=== PATIENT | male | born 1935 | race Caucasian/White ===

== ENCOUNTER 2023-09-27 14:16 | Inpatient (IN) ==
[2023-09-27] MEDS: predniSONE 50 MG TAB PO STA (14:53)
[2023-09-27] MEDS: ALBUT/IPRATROP 3MG/0.5MG NEB 3 ML VIAL NEB STA (14:53)
[2023-09-27 14:58] LABS: iSTAT Creatinine 1.5 mg/dl (0.6-1.3); iSTAT Hemoglobin 15.6 g/dl (14.0-18.0); iSTAT Ionized Calcium 1.17 mmol/l (1.12-1.32); iSTAT Potassium 4.1 mmol/L (3.3-5.0)
[2023-09-27 14:58] LABS: Base Excess VBG 3.2 mEq/L; HCO3 VBG 30 mmol/L; Oxygen Saturation VBG < 60.0 %; PCO2 VBG 53 mmHg (38-50); PO2 VBG 21 mmHg; pH VBG 7.36 (7.36-7.41)
[2023-09-27 15:15] LABS: Basophils # (auto) 0.06 K/uL (0.00-0.20); Basophils % (auto) 0.6 %; Eosinophils # (auto) 0.06 K/uL (0.00-0.50); Eosinophils % (auto) 0.6 %; Hematocrit (blood only) 45.6 % (42.0-52.0); Hemoglobin 15.1 g/dl (14.0-18.0); Immature Granulocytes # (auto) 0.05 K/uL (0.01-0.20); Immature Granulocytes % (auto) 0.5 %; Lymphocytes # (auto) 0.71 K/uL (1.20-3.40); Lymphocytes % (auto) 7.7 %; Mean Corpuscular Hemoglobin 30.3 pg (25.0-34.0); Mean Corpuscular Hgb Conc 33.1 g/dL (32.0-36.0); Mean Corpuscular Volume 91.4 fL (80.0-100.0); Mean Platelet Volume 10.9 fL (9.4-12.4); Monocytes % (auto) 7.6 %; Neutrophils # (auto) 7.69 K/uL (1.40-6.50); Platelet Count 253 K/uL (130-400); RDW Standard Deviation 49.6 fL (36.4-46.3); Red Blood Count 4.99 M/uL (4.70-6.10); White Blood Count 9.27 K/ul (4.8-10.8)
[2023-09-27 15:21] LABS: BUN Creatinine Ratio 23.9 (10-20); Calcium 9.2 mg/dl (8.6-10.3); Est GFR (African American) 55.2 ml/min; Est GFR (Non-African American) 47.6 ml/min; Potassium 4.1 mmol/L (3.5-5.1)
--- NOTE | 2023-09-27 15:21 | XRay Report ---
XR chest 1V portable CLINICAL HISTORY: Chest pain, nonspecific TECHNIQUE: Single frontal radiograph of the chest was obtained. Comparison: Comparison is made to chest radiograph 06/07/2022 FINDINGS: An implanted pacemaker is seen. Cardiomegaly is noted. The aortic arch is calcified. Bilateral lower lung predominant airspace opacities are seen. No evidence of pleural effusion or pneumothorax. IMPRESSION: 1. Bilateral lower lung predominant airspace opacities which may represent atelectasis, pneumonia, a nd/or aspiration. 2. Cardiomegaly is seen. ACT 112: Negative or not required by law. Electronically signed by: Evens Domingo M.D. 09/27/2023 3:20 PM
[2023-09-27 15:28] LABS: Troponin I High Sensitivity 22.1 pg/ml (0-20)
[2023-09-27 15:29] LABS: Partial Thromboplastin Ratio 1.1; Partial Thromboplastin Time 32 Seconds (21-31); Prothrombin Time 11.2 Seconds (9.0-12.0)
[2023-09-27 15:46] LABS: Adenovirus PCR Not Detected (NotDetected); Bordetella parapertussis PCR Not Detected (NotDetected); Bordetella pertussis PCR Not Detected (NotDetected); Chlamydia pneumoniae PCR Not Detected (NotDetected); Coronavirus 229E PCR Not Detected (NotDetected); Coronavirus CoV-2 (COVID19)PCR Not Detected (NotDetected); Coronavirus HKU1 PCR Not Detected (NotDetected); Coronavirus NL63 PCR Not Detected (NotDetected); Coronavirus OC43PCR Not Detected (NotDetected); Human Metapneumovirus PCR Not Detected (NotDetected); Influenza A PCR Not Detected (NotDetected); Influenza B PCR Not Detected (NotDetected); Mycoplasma pneumoniae PCR Not Detected (NotDetected); Parainfluenza Virus 1 PCR Not Detected (NotDetected); Parainfluenza Virus 2 PCR Not Detected (NotDetected); Parainfluenza Virus 3 PCR Not Detected (NotDetected); Parainfluenza Virus 4 PCR Not Detected (NotDetected); Respiratory Syncytial VirusPCR Not Detected (NotDetected); Rhinovirus/Enterovirus PCR Not Detected (NotDetected)
[2023-09-27] MEDS: FUROSEMIDE 40 MG/4 ML VIAL IV ONE (17:11)
--- NOTE | 2023-09-27 17:26 | History & Physical Report ---
Date of Service September 27, 2023 Assessment & Plan (1) Acute hypoxic respiratory failure: Plan: Admit to telemetry Patient presenting from home with reports of worsening shortness of breath. Per patient report, he underwent COURTNEY guided cardioversion yesterday at [facility]. Records unavailable at this time. I attempted to call patient's cardiology office however they were closed. Patient's casino enforcement agent-Dr. Vijay Stinson, [facility]. [phone]. In the ED, patient found to be hypoxic on room air at 84%, currently requiring 5 L of oxygen nasal cannula CXR shows bilateral lower lobe opacities Mildly elevated proBNP Doubt PE given anticoagulation with Eliquis and no missed doses ? CHF from IV fluid administration and/or aspiration from procedure yesterday 05/2022-EF 55% on pharmacologic nuclear stress test S/p Lasix 40 mg IV in the ED. Will hold on additional doses at this time and monitor response. Patient is Lasix john. Consider cardiology consult pending clinical course Will cover empirically for aspiration with IV Unasyn, noted normal procalcitonin and no leukocytosis Received prednisone 50 mg in the ED, will hold on additional steroids at this time. Will continue with scheduled nebs. Wean O2 as able Will need to obtain records from [facility] tomorrow (2) Paroxysmal atrial fibrillation: Plan: Per patient, s/p COURTNEY guided cardioversion yesterday at [facility] -will need to obtain records Per outpatient cardiology note on 08/31/2023, patient was started on amiodarone. Per patient, today is his last day of amiodarone 200mg BID dosing, to start amiodarone 200mg daily tomorrow -- will continue. Continue metoprolol for rate control Continue Eliquis (3) Complete AV block: (4) Pacemaker: Plan: Device interrogation ordered (5) Hypertension: Plan: BP controlled, continue metoprolol and losartan DVT PROPHYLAXIS On Eliquis Patient seen in collaboration with Dr. Moreno. I spent a total of 75 minutes coordinating, documenting, and providing care for this patient excluding time spent in the performance of separately billed services. This included personally reviewing all current laboratories and imaging studies, medication reconciliation, outpatient chart review, and discussion with specialists. History of Present Illness Chief Complaint: Shortness of breath Primary Care Provider: Vineet Paris MD 88-year-old male with PMH paroxysmal atrial fibrillation anticoagulated on Eliquis, complete AV block s/p pacemaker, HTN, GERD, and other problems listed below who presents to the ED for evaluation of shortness of breath. History is obtained from the patient and review of outpatient PCP and cardiology records. According to the patient, he underwent COURTNEY guided cardioversion yesterday at [facility]. Records unavailable at this time. Patient carries a history of paroxysmal atrial fibrillation. On 08/31/2023, patient was seen by his casino enforcement agent and device interrogation showed persistent A-fib for the previous 3 months. Due to complaints of worsening dyspnea on exertion, plans were made to proceed with COURTNEY cardioversion to attempt to maintain sinus rhythm. Patient was also started on amiodarone at that time. Patient reports dyspnea on exertion was at recent baseline prior to procedure yesterday. Patient reports feeling well postprocedure. Today, he woke up feeling his usual state of health however as the day went on, he reports feeling progressively more short of breath. He denies chest pain and palpitations. No lightheadedness, dizziness, diaphoresis, syncopal events. Denies fevers and chills. Reports chronic nonproductive cough which is unchanged from baseline. No abdominal pain, nausea, vomiting, diarrhea. Denies urinary symptoms. In the ED, patient was found to be hypoxic on room air at 84%, initially requiring 5 L of oxygen via nasal cannula. Labs show mildly elevated proBNP. CXR shows bilateral lower lung opacities. Patient was given nebulizer treatment, Lasix 40 mg IV, prednisone 50 mg p.o. Allergies Allergy/AdvReac Type Severity Reaction Status Date / Time lisinopril AdvReac Intermediate Cough Verified 09/27/23 16:07 codeine AdvReac Mild HEADACHES Verified 09/27/23 16:07 Home Medications Medication Instructions Recorded Confirmed Type acetaminophen 500 mg tablet 1,000 mg PO Q6H PRN Pain 04/05/22 09/27/23 History cholecalciferol (vitamin D3) 25 25 mcg PO HS 04/05/22 09/27/23 History mcg (1,000 unit) capsule (Vitamin D3) cyanocobalamin (vitamin B-12) 1,000 mcg PO QAM 04/05/22 09/27/23 History 1,000 mcg capsule finasteride 5 mg tablet 5 mg PO QAM 04/05/22 09/27/23 History folic acid 1 mg tablet 1 mg PO Q2D 04/05/22 09/27/23 History losartan 100 mg tablet 100 mg PO QAM 04/05/22 09/27/23 History metoprolol tartrate 25 mg tablet 12.5 mg PO BID 04/05/22 09/27/23 History pantoprazole 40 mg tablet,delayed 40 mg PO QAM 04/05/22 09/27/23 History release tamsulosin 0.4 mg capsule 0.4 mg PO HS 04/05/22 09/27/23 History amiodarone 200 mg tablet See Rx Instructions .Route .COMPLEX 09/27/23 09/27/23 History apixaban 5 mg tablet (Eliquis) 5 mg PO BID 09/27/23 09/27/23 History Past Med/Surg History Medical History Compression fracture of lumbar vertebra with delayed healing TGA (transient global amnesia) hx-"had it once and never had it again" History of atrial fibrillation f/u anu reyes History of thrombophlebitis left upper extremity in cephalic vein 04/15/21 Hepatic steatosis mild per CT abdomen pelvis 07/11/21 Complete AV block s/p pacemaker Enlarged prostate GERD (gastroesophageal reflux disease) controlled, stable per pt Pacemaker pt is pacer dependent; placed 2013, 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 Required: No Beliefs That Will Affect Care: None Current Living Situation: Spouse current occupational status: other 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 [employer] Feels Safe at Home: Yes Assistive Devices: Walker Physical Exam Constitutional: WD/WN, vitals as above no acute distress Eyes: PERRL, conjunctivae normal, anicteric sclerae ENMT: external ear and nose normal, oropharynx normal Respiratory: normal respiratory effort; no respiratory distress Auscultation: + diminished lung sounds and + wheezes (Faint audible expiratory wheezing noted) Cardiovascular: Rate/Rhythm: regular rate and regular rhythm Vessels: normal peripheral pulses Extremities: + edema (+1 edema RLE, chronic) Gastrointestinal (Abdomen): normal bowel sounds, soft, nontender, no hepatosplenomegaly Musculoskeletal: no cyanosis or clubbing, extremities motor strength 5/5 Skin: no rashes, warm and dry Neurologic: PERRL, EOMI, accommodation nl, no face palsy, no dysarthria Psychiatric: A+Ox3, euthymic affect Results & Data Results & Data Vital Signs (Past 12 Hours) Vital Signs Temp Pulse Pulse Resp BP BP Pulse Ox 09/27/23 17:09 75 29 H 147/91 H 98 09/27/23 16:02 66 23 157/93 H 93 09/27/23 15:15 73 40 H 167/99 H 99 09/27/23 15:02 73 36 H 172/118 H 100 09/27/23 14:45 73 25 H 171/101 H 100 09/27/23 14:36 98 09/27/23 14:31 75 09/27/23 14:21 36.6 C 72 28 H 165/107 H 84 L O2 Del Method O2 Flow Rate 09/27/23 17:09 Nasal Cannula 5 09/27/23 16:02 Nasal Cannula 5 09/27/23 15:15 Nasal Cannula 5 09/27/23 15:02 Nasal Cannula 5 09/27/23 14:45 Nasal Cannula 5 09/27/23 14:36 Nasal Cannula 5 09/27/23 14:31 09/27/23 14:21 Room Air Laboratory Results Short CBC 09/27/23 Range/Units 14:36 WBC 9.27 (4.8-10.8) K/ul Hgb 15.1 (14.0-18.0) g/dl Hct 45.6 (42.0-52.0) % Plt Count 253 (130-400) K/uL BMP 09/27/23 14:36 Sodium 140 Potassium 4.1 Chloride 106 Carbon Dioxide 27 BUN 32 H Creatinine 1.34 Glucose 102 H Calcium 9.2 Diagnostic Findings Chest X-Ray 09/27/23 14:42 XR chest 1V portable CLINICAL HISTORY: Chest pain, nonspecific TECHNIQUE: Single frontal radiograph of the chest was obtained. Comparison: Comparison is made to chest radiograph 06/07/2022 FINDINGS: An implanted pacemaker is seen. Cardiomegaly is noted. The aortic arch is calcified. Bilateral lower lung predominant airspace opacities are seen. No evidence of pleural effusion or pneumothorax. IMPRESSION: 1. Bilateral lower lung predominant airspace opacities which may represent atelectasis, pneumonia, and/or aspiration. 2. Cardiomegaly is seen. ACT 112: Negative or not required by law. Electronically signed by: Evens Domingo M.D. 09/27/2023 3:20 PM Code Status & VTE Plan VTE Prophylaxis Plan VTE Prophylaxis will be ordered: No Supervising Physician Co-Signing Physician Notes Reviewed chart, discussed plan of care with ACTING SECTION CHIEF, cardiology consult called, will continue IV diuretics at this time. Continue present plan of care.
--- NOTE | 2023-09-27 17:38 | Emergency Department Note ---
History of Present Illness General Chief Complaint: Cardiac Assessment Stated Complaint: POSS HEART ATTACK Time Seen by Provider: 09/27/23 14:35 History of Present Illness Provider Complaint: shortness of breath Onset (ago): day(s) (1) Severity: moderate Maximum Pain Intensity: 7 Relieved By: + nothing Exacerbated By: + lying flat Associated symptoms: + chest pain, + orthopnea and + chest congestion; no pain with inspiration, no fever, no cough, no wheezing, no sputum production, no lower extremity pain, no polyuria, no paresthesias, no carpopedal spasm, no hemoptysis or no nausea/vomiting HPI Narrative: Patient on Eliquis. Patient had COURTNEY done yesterday at [facility]. Related Data Home oxygen amount: none Home Medications Medication Instructions Recorded Confirmed Type acetaminophen 500 mg tablet 1,000 mg PO Q6H PRN Pain 04/05/22 09/27/23 History cholecalciferol (vitamin D3) 25 25 mcg PO HS 04/05/22 09/27/23 History mcg (1,000 unit) capsule (Vitamin D3) cyanocobalamin (vitamin B-12) 1,000 mcg PO QAM 04/05/22 09/27/23 History 1,000 mcg capsule finasteride 5 mg tablet 5 mg PO QAM 04/05/22 09/27/23 History folic acid 1 mg tablet 1 mg PO Q2D 04/05/22 09/27/23 History losartan 100 mg tablet 100 mg PO QAM 04/05/22 09/27/23 History metoprolol tartrate 25 mg tablet 12.5 mg PO BID 04/05/22 09/27/23 History pantoprazole 40 mg tablet,delayed 40 mg PO QAM 04/05/22 09/27/23 History release tamsulosin 0.4 mg capsule 0.4 mg PO HS 04/05/22 09/27/23 History amiodarone 200 mg tablet See Rx Instructions .Route .COMPLEX 09/27/23 09/27/23 History apixaban 5 mg tablet (Eliquis) 5 mg PO BID 09/27/23 09/27/23 History Allergies Allergy/AdvReac Type Severity Reaction Status Date / Time lisinopril AdvReac Intermediate Cough Verified 09/27/23 16:07 codeine AdvReac Mild HEADACHES Verified 09/27/23 16:07 Past Med/Surg History Medical History Compression fracture of lumbar vertebra with delayed healing TGA (transient global amnesia) hx-"had it once and never had it again" History of atrial fibrillation f/u anu reyes History of thrombophlebitis left upper extremity in cephalic vein 04/15/21 Hepatic steatosis mild per CT abdomen pelvis 07/11/21 Complete AV block s/p pacemaker Enlarged prostate GERD (gastroesophageal reflux disease) controlled, stable per pt Pacemaker pt is pacer dependent; placed 2013, [facility] pacemaker, anu; f/u anu stinson Hypertension controlled, stable per pt Surgical History Hx of vasectomy Hx of colonoscopy H/O umbilical hernia repair History of cataract surgery R/L History of permanent cardiac pacemaker placement 2013 AND BATTERY REPLACEMENT 2020 Family History Other No known health problems Social History Smoking Status: Never smoker Second Hand Exposure: No; Do You Dip or Chew Tobacco: No; Hx Alcohol Use: No Hx Substance Use: No Preferred Language: Divehi Communication Ability: Effective Roofer Metal Required: No Beliefs That Will Affect Care: None Current Living Situation: Spouse current occupational status: other 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 [employer] Feels Safe at Home: Yes Assistive Devices: Walker Physical Exam 2 Vital Signs: Vital Signs - 24 hr 09/27/23 14:21 09/27/23 14:31 09/27/23 14:36 Temperature 36.6 C Temperature Source Oral Pulse Rate 72 75 Pulse Rate [Left F ngozi] Pulse Rhythm Regular Pulse Rhythm [Left Finger] Pulse Strength Normal Pulse Strength [Le ft Finger] Respiratory Rate 28 H Respiratory Effort / Characteristics Respiratory Depth Respiratory Patter n Blood Pressure 165/107 H Blood Pressure [Le ft Arm] Blood Pressure Darlene n 126 Blood Pressure Darlene n [Left Arm] Blood Pressure Pos ition Sitting Blood Pressure Pos ition [Left Arm] Pulse Oximetry 84 L 98 Oxygen Delivery Me thod Room Air Nasal Cannula Oxygen Flow Rate 5 Sepsis Recent Feve r Within 48 Hours No Sepsis New/Unexpla ined Change in Men nakia Status No Sepsis Action Take n by Nursing No Action Required 09/27/23 14:45 09/27/23 15:02 09/27/23 15:15 Temperature Temperature Source Pulse Rate Pulse Rate [Left F ngozi] 73 73 73 Pulse Rhythm Pulse Rhythm [Left Finger] Pulse Strength Pulse Strength [Le ft Finger] Respiratory Rate 25 H 36 H 40 H Respiratory Effort / Characteristics Respiratory Depth Respiratory Patter n Blood Pressure Blood Pressure [Le ft Arm] 171/101 H 172/118 H 167/99 H Blood Pressure Darlene n Blood Pressure Darlene n [Left Arm] 124 136 121 Blood Pressure Pos ition Blood Pressure Pos ition [Left Arm] Sitting Sitting Sitting Pulse Oximetry 100 100 99 Oxygen Delivery Me thod Nasal Cannula Nasal Cannula Nasal Cannula Oxygen Flow Rate 5 5 5 Sepsis Recent Feve r Within 48 Hours Sepsis New/Unexpla ined Change in Men nakia Status Sepsis Action Take n by Nursing 09/27/23 16:02 09/27/23 17:09 09/27/23 17:15 Temperature Temperature Source Pulse Rate Pulse Rate [Left F ngozi] 66 75 75 Pulse Rhythm Pulse Rhythm [Left Finger] Regular Pulse Strength Pulse Strength [Le ft Finger] Normal Respiratory Rate 23 29 H 29 H Respiratory Effort / Characteristics Non-Labored SOB on Exertion Non-Labored Respiratory Depth Normal Normal Normal Respiratory Patter n Blood Pressure Blood Pressure [Le ft Arm] 157/93 H 147/91 H 147/91 H Blood Pressure Darlene n Blood Pressure Darlene n [Left Arm] 114 109 109 Blood Pressure Pos ition Blood Pressure Pos ition [Left Arm] Lying Pulse Oximetry 93 98 97 Oxygen Delivery Me thod Nasal Cannula Nasal Cannula Nasal Cannula Oxygen Flow Rate 5 5 4 Sepsis Recent Feve r Within 48 Hours Sepsis New/Unexpla ined Change in Men nakia Status Sepsis Action Take n by Nursing 09/27/23 17:15 Temperature Temperature Source Pulse Rate Pulse Rate [Left F ngozi] Pulse Rhythm Pulse Rhythm [Left Finger] Pulse Strength Pulse Strength [Le ft Finger] Respiratory Rate Respiratory Effort / Characteristics Non-Labored Respiratory Depth Normal Respiratory Patter n Regular Blood Pressure Blood Pressure [Le ft Arm] Blood Pressure Darlene n Blood Pressure Darlene n [Left Arm] Blood Pressure Pos ition Blood Pressure Pos ition [Left Arm] Pulse Oximetry Oxygen Delivery Me thod Oxygen Flow Rate Sepsis Recent Feve r Within 48 Hours Sepsis New/Unexpla ined Change in Men nakia Status Sepsis Action Take n by Nursing Physical Exam: Physical Exam GENERAL: oriented to person, place, and time. appears well-developed and well- nourished. HENT: Exam performed. - Head: Normocephalic and atraumatic. EYES: Conjunctivae and EOM are normal. Right eye exhibits no discharge. Left eye exhibits no discharge. No scleral icterus. NECK: Normal range of motion. Neck supple. No JVD present. CV: Normal rate, regular rhythm, normal heart sounds and intact distal pulses. There is no peripheral edema. Palpable radial pulses bue. PULM/CHEST: Expiratory wheezes bilaterally. Inspiratory rales bilaterally. ABD: The abdomen is soft. There is no tenderness. NEURO: Motor and sensation grossly intact. SKIN: Skin is warm and dry. He is not diaphoretic. PSYCH: normal mood and affect. Behavior is normal. Judgment and thought content normal. Course Course 1435: The patient was evaluated in room C1. A complete history and physical exam was performed Cardiac monitoring: An order was placed for continuous cardiac monitoring. The monitor shows a rate of 80 with paced rhythm interpreted by me Patient hypoxic on room air supplemental oxygen via nasal cannula was applied which improved the patient's oxygen saturation. Given the patient's wheezing DuoNeb and prednisone ordered for the patient 1507: Received a patient from the patient's pacemaker risk control field representative Nicholas who did interpretations that the pacemaker seems to be acting appropriately. 1555: Vital signs stable on supplemental oxygen via nasal cannula. BNP 236 high-sensitivity troponin 22.1. Chest x-ray viewed by me shows cardiomegaly with cephalization. Patient will be treated with Lasix 40 mg IV push and admitted to the [facility] hospitalist team. Administered Medications Discontinued Medications Albuterol (Albut/Ipratrop 3mg/0.5mg Neb 3 Ml Vial) 3 ml NEB NOW STA; Protocol Stop: 09/27/23 14:42 Last Admin: 09/27/23 14:53 Dose: 3 ml Documented By: CRISTY Furosemide (Furosemide 40 Mg/4 Ml Vial) 40 mg IV ONE ONE Stop: 09/27/23 15:56 Last Admin: 09/27/23 17:11 Dose: 40 mg Documented By: NILAM Prednisone (Prednisone 50 Mg Tab) 50 mg PO NOW STA Stop: 09/27/23 14:42 Last Admin: 09/27/23 14:53 Dose: 50 mg Documented By: CRISTY Medical Decision Making Laboratory Data Attestation: I reviewed the patient's lab results. 09/27/23 14:36 09/27/23 14:36 Lab Results 09/27/23 09/27/23 09/27/23 Range/Units 14:35 14:36 14:46 WBC 9.27 (4.8-10.8) K/ul RBC 4.99 (4.70-6.10) M/uL Hgb 15.1 (14.0-18.0) g/dl POC Hgb 15.6 (14.0-18.0) g/dl Hct 45.6 (42.0-52.0) % POC Hct 46 (42-52) % MCV 91.4 (80.0-100.0) fL MCH 30.3 (25.0-34.0) pg MCHC 33.1 (32.0-36.0) g/dL RDW Std Deviation 49.6 H (36.4-46.3) fL RDW Coeff of Selena 15.0 H (11.5-14.5) % Plt Count 253 (130-400) K/uL MPV 10.9 (9.4-12.4) fL Immature Gran % (Auto) 0.5 % Neut % (Auto) 83.0 % Lymph % (Auto) 7.7 % [place] % (Auto) 7.6 % Eos % (Auto) 0.6 % Baso % (Auto) 0.6 % Neut # (Auto) 7.69 H (1.40-6.50) K/uL Lymph # (Auto) 0.71 L (1.20-3.40) K/uL [place] # (Auto) 0.70 H (0.11-0.59) K/uL Eos # (Auto) 0.06 (0.00-0.50) K/uL Baso # (Auto) 0.06 (0.00-0.20) K/uL Immature Gran # (Auto) 0.05 (0.01-0.20) K/uL PT 11.2 (9.0-12.0) Seconds INR 1.0 (0.9-1.1) APTT 32 H (21-31) Seconds PTT Ratio 1.1 VBG pH 7.36 (7.36-7.41) VBG pCO2 53 H (38-50) mmHg VBG pO2 21 mmHg VBG HCO3 30 mmol/L VBG O2 Saturation < 60.0 % VBG Base Excess 3.2 mEq/L POC Sodium 141 (135-144) mmol/L Sodium 140 (136-145) mmol/L POC Potassium 4.1 (3.3-5.0) mmol/L Potassium 4.1 (3.5-5.1) mmol/L POC Chloride 104 (101-112) mmol/L Chloride 106 (98-107) mmol/L Carbon Dioxide 27 (21-32) mmol/L POC Total CO2 26 (24-31) mmol/L Anion Gap 7 (3-11) POC Anion Gap 16.0 (16-25) mmol/L POC BUN 32 H (7-18) mg/dl BUN 32 H (6-23) mg/dl Creatinine 1.34 (0.6-1.4) mg/dl POC Creatinine 1.5 H (0.6-1.3) mg/dl Est Cr Clr Drug Dosing 40.0 ml/min Est GFR ( Amer) 55.2 ml/min Est GFR (Non-Af Amer) 47.6 ml/min BUN/Creatinine Ratio 23.9 H (10-20) Glucose 102 H (70-99(Fasting)) mg/dl POC Glucose (other) 106 H (70-99) mg/dl Calcium 9.2 (8.6-10.3) mg/dl POC Ioniz Calcium Jacqueline 1.17 (1.12-1.32) mmol/l Troponin I High Sens 22.1 H (0-20) pg/ml B-Natriuretic Peptide 236 H (0-100) pg/ml Lipase 30 (11-82) U/L Procalcitonin < 0.05 (0-0.5) ng/ml Adenovirus (PCR) Not Detected (NotDetected) B. pertussis DNA (PCR) Not Detected (NotDetected) B.parapertussis DNA PCR Not Detected (NotDetected) C. pneumoniae DNA (PCR) Not Detected (NotDetected) Coronavirus OC43 (PCR) Not Detected (NotDetected) Coronavirus HKU1 (PCR) Not Detected (NotDetected) Coronavirus 229E (PCR) Not Detected (NotDetected) SARS-CoV-2 (PCR) Not Detected (NotDetected) Coronavirus NL63 (PCR) Not Detected (NotDetected) Human Metapneumovir PCR Not Detected (NotDetected) Influenza Type A (PCR) Not Detected (NotDetected) Influenza Type B (PCR) Not Detected (NotDetected) M. pneumoniae (PCR) Not Detected (NotDetected) Parainfluenza 1 (PCR) Not Detected (NotDetected) Parainfluenza 2 (PCR) Not Detected (NotDetected) Parainfluenza 3 (PCR) Not Detected (NotDetected) Parainfluenza 4 (PCR) Not Detected (NotDetected) RSV (PCR) Not Detected (NotDetected) Entero/Rhino (PCR) Not Detected (NotDetected) Imaging Data Attestation: I personally reviewed and interpreted this imaging study as follows: My Impression: Chest x-ray: Airway clear. No pneumothorax. No consolidation. cardiomegaly with cephalization.. No free air under the diaphragm. No fractures of the skeletal structures. Radiologist's Impression: Chest X-Ray 09/27/23 14:42 XR chest 1V portable CLINICAL HISTORY: Chest pain, nonspecific TECHNIQUE: Single frontal radiograph of the chest was obtained. Comparison: Comparison is made to chest radiograph 06/07/2022 FINDINGS: An implanted pacemaker is seen. Cardiomegaly is noted. The aortic arch is calcified. Bilateral lower lung predominant airspace opacities are seen. No evidence of pleural effusion or pneumothorax. IMPRESSION: 1. Bilateral lower lung predominant airspace opacities which may represent atelectasis, pneumonia, and/or aspiration. 2. Cardiomegaly is seen. ACT 112: Negative or not required by law. Electronically signed by: Evens Domingo M.D. 09/27/2023 3:20 PM ECG Data Attestation: I personally reviewed and interpreted this ECG as follows: Interpretation: Paced rhythm with a rate of 77. GA 190 QRS 154 QTc 486. No ectopy. [facility] Narrative 1435: The patient was evaluated in room C1. A complete history and physical exam was performed Cardiac monitoring: An order was placed for continuous cardiac monitoring. The monitor shows a rate of 80 with paced rhythm interpreted by me Patient hypoxic on room air supplemental oxygen via nasal cannula was applied which improved the patient's oxygen saturation. Given the patient's wheezing DuoNeb and prednisone ordered for the patient 1507: Received a patient from the patient's pacemaker risk control field representative Nicholas who did interpretations that the pacemaker seems to be acting appropriately. 1555: Vital signs stable on supplemental oxygen via nasal cannula. BNP 236 high-sensitivity troponin 22.1. Chest x-ray viewed by wv shows cardiomegaly with cephalization. Patient will be treated with Lasix 40 mg IV push [facility]. Impression & Plan Hypoxia, Fluid overload Critical Care Time Critical Care Time: Yes Total Critical Care Time: 68 I have personally spent greater than 68 minutes of critical care time in the direct management of this patient. This includes bedside care, interpretation of diagnostic studies, and testing, discussion with consultants, patient, and family members, and other required patient management activities. This 68 minutes is in excess of all separately billable procedures. Discharge Plan Visit Data Chief Complaint: Cardiac Assessment Stated Complaint: POSS HEART ATTACK ED Provider: Moi Monet Discharge Problem: Hypoxia, Fluid overload Patient Disposition: Admitted As Inpatient Forms Stand Alone Forms: My [facility] Prescriptions Prescriptions: No Action tamsulosin 0.4 mg Capsule 0.4 mg PO HS pantoprazole 40 mg Tablet,Delayed Release (Dr/Ec) 40 mg PO QAM folic acid 1 mg Tablet 1 mg PO Q2D losartan 100 mg Tablet 100 mg PO QAM finasteride 5 mg Tablet 5 mg PO QAM metoprolol tartrate 25 mg Tablet 12.5 mg PO BID cholecalciferol (vitamin D3) [Vitamin D3] 25 mcg (1,000 unit) Capsule 25 mcg PO HS cyanocobalamin (vitamin B-12) 1,000 mcg Capsule 1,000 mcg PO QAM acetaminophen 500 mg Tablet 1,000 mg PO Q6H PRN (Reason: Pain) amiodarone 200 mg Tablet See Rx Instructions .ROUTE .COMPLEX Rx Instructions: PER PT'S SPOUSE "TAKING 400 MG DAILY X 14 DAYS, THEN DECREASE DOSE TO 200 MG DAILY". Eliquis 5 mg Tablet 5 mg PO BID Referrals Referrals: Vineet Paris MD [Primary Care Provider] - Discharge Problem: Fluid overload Qualifiers: Hypervolemia type: unspecified Qualified Code(s): E87.70 - Fluid overload, unspecified
[2023-09-27] MEDS ORDERED: ACETAMINOPHEN 325 MG TAB PO PRN (18:35)
[2023-09-27] MEDS: AMPICILLIN/SULBACTAM SOD 3,000 MG in SODIUM CHLOR 0.9% MINI-B 100 ML IV SCH (19:36)
[2023-09-27] MEDS: ALBUT/IPRATROP 3MG/0.5MG NEB 3 ML VIAL NEB SCH (20:00)
[2023-09-27] MEDS: AMIODARONE 200 MG TAB PO ONE (20:35)
[2023-09-27] MEDS: APIXABAN 5 MG TABLET PO SCH (20:36)
[2023-09-27] MEDS: CHOLECALCIFEROL 25 MCG (1000 UNITS) TAB PO SCH (20:37)
[2023-09-27] MEDS: METOPROLOL TARTRATE 25 MG TAB PO SCH (20:38)
[2023-09-27] MEDS: TAMSULOSIN HCL 0.4 MG CAP PO SCH (20:41)
[2023-09-28 02:35] LABS: Hematocrit (blood only) 39.9 % (42.0-52.0); Hemoglobin 12.7 g/dl (14.0-18.0); Mean Corpuscular Hemoglobin 29.3 pg (25.0-34.0); Mean Corpuscular Hgb Conc 31.8 g/dL (32.0-36.0); Mean Corpuscular Volume 92.1 fL (80.0-100.0); Mean Platelet Volume 10.5 fL (9.4-12.4); Platelet Count 231 K/uL (130-400); RDW Coefficient of Variation 14.7 % (11.5-14.5); RDW Standard Deviation 49.6 fL (36.4-46.3); Red Blood Count 4.33 M/uL (4.70-6.10); White Blood Count 8.02 K/ul (4.8-10.8)
[2023-09-28 02:41] LABS: BUN Creatinine Ratio 26.2 (10-20); Calcium 8.6 mg/dl (8.6-10.3); Creatinine Clr Calc Pharmacy 41.2 ml/min; Est GFR (African American) 57.3 ml/min; Est GFR (Non-African American) 49.4 ml/min; Magnesium 1.8 mg/dl (1.7-2.4); Potassium 4.1 mmol/L (3.5-5.1)
--- NOTE | 2023-09-28 07:30 | XRay Report ---
XR chest 1V portable CLINICAL HISTORY: hypoxia TECHNIQUE: Single frontal radiograph of the chest was obtained. Comparison: Comparison is made to chest radiograph 09/27/2023 FINDINGS: An implanted pacemaker is seen. Cardiomegaly is noted. Faint bibasilar airspace opacities are seen. S mall bilateral pleural effusions are seen. IMPRESSION: Small bilateral pleural effusions, more prominent than in prior exam. Bilateral lower lung airspace o pacities are slightly less prominent and likely represent atelectasis with or without superimposed as piration/pneumonia. Stable cardiomegaly. ACT 112: Negative or not required by law. Electronically signed by: Evens Domingo M.D. 09/28/2023 7:29 AM
--- OUTSIDE RECORDS SUMMARY | 2023-09-28 08:08 | External Medical Summary | Summary of Care ---
Author Name Unknown Organization [facility] Address [address] [facility] [place] [address] Phone [phone] Care Team Providers Care Financial Sales Advisor Name Role Phone Vineet Paris MD Primary Care Provider Encounter Details Date Type Department Care Team (Late st Contact Info) Description 09/19/[address] [facility] [address] [facility] [place] [phone] Vineet Paris MD [facility] [place] [id number] Allergies Active Allergy Reactions Criticality Noted Date Comments Codeine Other (Please comment) 10/01/2015 Severe headache Lisinopril Cough 01/14/2014 Omeprazole Diarrhea 04/13/2004 documented as of this encounter (statuses as of 09/19/2023) Medications Medication Sig Dispensed Refills Start Date End Date Status cholecalciferol, VIT D3, (VITAMIN D3) 1000 UNITS Tablet Take 1 Tablet by mouth. 1 tablet daily 0 10/26/2015 Active Losartan Potassium 100 MG Tablet Take 1 Tablet by mouth in the morning. 0 10/26/2015 Active Pantoprazole Sodium 40 MG Oral Packet Take 40 mg by mouth in the morning. 0 10/26/2015 Active vitamin b 12 (CYANOCOBALAMIN) 1000 MCG TABS Take 1 Tablet by mouth in the morning. 0 Active metoprolol succinate XL (TOPROL XL) 25 MG TB24 Take 0.5 Tablets by mouth in the morning and 0.5 Tablets before bedtime. 0 04/12/2017 Active Folic Acid 1 MG Oral Tablet Every other day 0 08/27/2020 Active Tamsulosin HCl 0.4 MG Oral Capsule (Flomax) TAKE 1 CAPSULE BY MOUTH EVERY DAY FOR PROSTATE 0 08/27/2020 Active Finasteride 5 MG Oral Tablet (Proscar) Take 1 Tablet by mouth daily. 90 Tablet 3 09/07/2021 Active Apixaban 5 MG Oral Tablet (Eliquis) Take 1 Tablet by mouth in the morning and 1 Tablet before bedtime. 0 06/06/2022 Active Acetaminophen 500 MG Oral Tablet Take 2 Tablets by mouth in the morning and 2 Tablets at noon and 2 Tablets before bedtime. 0 Active documented as of this encounter (statuses as of 09/19/2023) Active Problems Problem Noted Date Diagnosed Date Dyspnea on exertion 07/10/2023 Chronic atrial fibrillation 11/17/2022 Paresthesia of right leg 11/17/2022 Atrial fibrillation 08/04/2022 Overview: May 30, 2022 Entered By: MASSIMO ANDRE Comment: Per private cardiology; see EKG 05/06/22 Ascending aorta dilatation 08/04/2022 Overview: CT chest @ [facility] 08/01/22: 4.1 cm dilation of the ascending thoracic aorta Age-related osteoporosis wit hout current pathological fracture 08/04/2022 History of complete AV block 11/07/2017 Obesity, Class I, BMI 30.0-34.9 (see actual BMI) 10/31/2016 HTN, goal below 150/90 04/20/2015 Cardiac pacemaker in situ 09/05/2014 Allergic rhinitis 02/13/2014 Elevated prostate specific antigen (PSA) 011 GERD (gastroesophageal reflux disease) 9 documented as of this encounter (statuses as of 09/19/2023) Resolved Problems Problem Noted Date Diagnosed Date Resolved Date Lyme disease 10/10/2016 10/09/2017 Transient global amnesia 09/25/2016 Arthritis of ankle, right 04/20/2015 Atrioventricular block, unspecified 09/05/2014 11/07/2017 Sinoatrial node dysfunction 09/05/2014 11/07/2017 Throat pain 12/06/2012 09/04/2014 Allergic rhinitis, cause unspecified 01/20/2012 09/05/2014 Localized superficial swelling, mass, or lump 01/14/20 11 09/05/2014 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 05/22/2009 10/11/2021 Essential hypertension, benign 11/13/2008 04/20/2015 Pigmented lesion right sideburn area 08/14/2003 09/05/2014 documented as of this encounter (statuses as of 09/19/2023) Immunizations Name Administration Dates Next Due COVID-19 mRNA, LNP-s, No Pre serve, 2-Dose Series (Moderna) 10/05/2020,09/07/2020 COVID-19, mRNA, LNP-s, PF, B ooster, 100mcg/0.5mg (Moderna) 08/12/2022,08/16/2021 Pneumococcal Conjugate Vacc, 13 Valent (Prevnar) 03/03/2016 Pneumococcal Polysaccharide PPV23 (Pneumovax) 08/19/2021,04/12/2006 Seasonal Influenza Virus Vac cine, Unspecified Formulation 05/13/2017,05/23/2015 Seasonal Influenza, PF, 6 M & above, IM , (FluLaval or Fluzone) 06/16/2018 Seasonal Influenza, Quadriva lent Hd, 65+ Yrs 06/01/2023,06/02/2022,06/11/2021,05/15 Seasonal Influenza, Quadriva lent, No Preserve, IM 05/28/2019,05/08/2017,06/20/2016,07/13 Seasonal Influenza, Split, I IV3, With Preserve, Inj 06/04/2019,05/12/2014,05/21/2012,06/22,05/22/2009 Seasonal Influenza, Trivalen t, Adjuvanted, 65+ yrs 06/28/2020 TD - Tetanus/Diptheria (ADULT) 03/28/2002 TDAP (age 11 and older)(Adacel) 05/21/2012 Varicella Zoster Vaccine (Adult) 06/29/2011 Zoster Vaccine Recombinant (Shingrix) 02/10/2020 ,07/28/2019 documented as of this encounter Social History Tobacco Use Types Packs/Day Years Used Date Smoking Tobacco: Former Smokeless Tobacco: Never Alcohol Use Standard Drinks/Week Comments Yes 0 (1 standard drink = 0.6 oz pur e alcohol) Rarely PHQ-2 Answer Date Recorded PHQ Adult Total Score 0 11/17/2022 Hunger Vital Sign Answer Date Recorded Within the past 12 months, y ou worried that your food would run out before you got the money to buy more. Never true 11/18/19 23 Within the past 12 months, t he food you bought just didn't last and you didn't have money to get more. Never true 11/17/2022 Sex and Gender Information Value Date Recorded Sex Assigned at Male 12/27/2021 5:50 PM EDT Gender Identity Male 12/27/2021 5:50 PM EDT Sexual Orientation Straight 12/27/2021 5: 50 PM EDT Job Start Date Occupation Industry Not on file Not on file Not on file documented as of this encounter Functional Status Functional Status Response Date of Assess ment Are you deaf or do you have serious difficulty h earing? No 09/25/2016 Are you blind or do you have serious difficulty seeing, even when wearing glasses? No 09/25/2016 Do you have difficulty dress ing or bathing? (5 years old or older) No 09/25/2016 Because of a physical, menta l, or emotional condition, do you have difficulty doing errands alone such as visiting a doctor s office or shopping? (15 years old or older) No 09/25/19 17 Cognitive Status Response Date of Assessm ent Because of a physical, menta l, or emotional condition, do you have serious difficulty concentrating, remembering, or making decisions? (5 years old or older) No 09/25/2016 documented as of this encounter Plan of Treatment Upcoming Encounters Date Type Department Care Team (Late st Contact Info) Description 12/11/2023 10:30 AM EDT Office Visit Urology Jenae Rai [address] [place] [id number] Don Oliver Jr., MD [address] [place] [phone] 01/24/2024 2:00 PM EDT [facility] [place] [phone] Vineet Paris MD [address] [facility] [address] [place] [phone] Pending Results Name Type Priority Associated Diagnoses Date /Time CHEMISTRY-OUTSIDE Lab Routine 023 TSH Lab Routine 08/22/2023 Health Maintenance Due Date Last Done Comments DTaP,Tdap,and Td Vaccines (2 - Td or Tdap) 05/21/2022 05/21/2012, 03/28/2002 *BISPHONATE OR OTHER ACCEPTABLE MEDICATION NEEDED FOR OSTEOPOROSIS (REFER TO SMARTSET #1146) 08/06/2022 COVID-19 Vaccine ( season) 2023 08/12/2022, 08/16/2021, 10/05/2020, Additional history exists Depression Screening 11/18/2023 11/17/2022 DXA Scan 12/21/2023 12/20/2021 Albumin/Creatinine Ratio 11/17/2025 11/17/2022, 01/26 VITAMIN D LEVEL ONCE IN A LIFETIME-USE SMARTSET# [id number] Completed 05/08/2017 Zoster Vaccines Completed 02/10/2020, 08/2018, 06/29/2011 Pneumococcal Vaccine: 65+ Years Completed 08/19/2021, 03/03/2016, 04/12/2006 Influenza Vaccine (FLU shot) Completed 12/2022, 06/02/2022, 06/11/2021, Additional history exists GARDASIL-HPV IMMUNIZATION SERIES Aged Out No longer eligible based on patient's age to complete this topic Hepatitis B Aged Out No longer eligi ble based on patient's age to complete this topic MENINGOCOCCAL (MENACTRA/MENVEO) Aged Out No longer eligible based on patient's age to complete this topic documented as of this encounter Medical Devices Not on filedocumented as of this encounter Advance Directives Latest Code Status on File Code Status Date Activated Date Inactivated Comments Full Code 09/25/2016 5:37 PM 09/26/2016 2:29 PM This order reflects the patients wishes and were consensually agreed upon. Question Answer Comments Discussion of Advance Directives occurred with: Not Discussed Care Teams Financial Sales Advisor Relationship Specialty Start Date End Date Vineet Paris MD [address] [place] [phone] PCP - General Family Medicine 11/16/21 documented as of this encounter
[2023-09-28] MEDS: AMIODARONE 200 MG TAB PO SCH (08:17)
[2023-09-28] MEDS: CYANOCOBALAMIN (B-12) 500 MCG TABLET PO SCH (08:18)
[2023-09-28] MEDS: FINASTERIDE 5 MG TAB PO SCH (08:18)
[2023-09-28] MEDS: LOSARTAN POTASSIUM 50 MG TAB PO SCH (08:19)
[2023-09-28] MEDS: PANTOprazole 40 MG TAB PO SCH (08:19)
--- NOTE | 2023-09-28 09:40 | Hospitalist Progress Note ---
Date of Service September 28, 2023 Assessment & Plan (1) Acute hypoxic respiratory failure: Plan: Patient presenting from home with reports of worsening shortness of breath. Per patient report, he underwent COURTNEY guided cardioversion at [facility]. 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 [phone]. Office was contacted and records re: his cardioversion reviewed Cardiology - [facility] also consulted and able to review his outside med. records Plan for echocardiogram today In the ED, patient found to be hypoxic on room air at 84%, currently requiring 5 L of oxygen nasal cannula CXR shows bilateral lower lobe opacities Mildly elevated proBNP Doubt PE given anticoagulation with Eliquis and no missed doses ? CHF from IV fluid administration and/or aspiration from procedure 05/2022-EF 55% on pharmacologic nuclear stress test S/p Lasix 40 mg IV in the ED. Hold on additional doses at this time and monitor response. Patient is Lasix john. Empirically started on Unasyn for aspiration, noted normal procalcitonin and no leukocytosis Received prednisone 50 mg in the ED, will hold on additional steroids at this time. Will continue with scheduled nebs. Wean O2 as able Currently down to 2L of suppl. O2 and feeling better overall. BP on lower side, plan to decrease losartan dose. Further med changes as per cardiology. (2) Paroxysmal atrial fibrillation: Plan: Per patient, s/p COURTNEY guided cardioversion yesterday at [facility] - records reviwed Per outpatient cardiology note on 08/31/2023, patient was started on amiodarone. Per patient, on amiodarone 200mg BID dosing, to start amiodarone 200mg daily today -- will continue. Continue metoprolol for rate control Continue Eliquis Further med changes as per cardiology (3) Complete AV block: (4) Pacemaker: Plan: Device interrogation ordered (5) Hypertension: Plan: BP on lower side, continue metoprolol and decrease losartan. Follow recs from cardiology DVT PROPHYLAXIS On Eliquis Admission and Anticipated Discharge Date Admission Date: September 27, 2023 Subjective Pt seen in follow up of hypoxia s/p cardioversion from [facility] at [facility] was given IV lasix , prednisone, breathing treatment on admission, also started on abx for poss. pna Currently laying in bed in NAD, on suppl. O2 2L, reports feeling better than yesterday Denies chest pain, shortness of breath. Has minimal cough. No fever, chills, abd. pain, n/v. Obtained med. records and reviewed cardioversion note from [facility]. Cardiology consulted and discussed with - plan for further eval with echo Review of Systems Review of Systems: All systems reviewed & are unremarkable except as noted in Subjective Physical Exam Physical Exam: Constitutional: WD/WN, M in no acu te distress Eyes: PERRL, conjunctiva e normal, anicteri c sclerae ENMT: external ear and n ose normal, oropha rynx normal Respiratory: normal respiratory effort; no respir atory distress , + diminished lung s ounds Cardiovascular: Rate/Rhythm: regul ar rate and regula r rhythm Vessels: normal peripheral pulses Extremiti es: + edema (+1 ed yariel RLE, chronic) Gastrointestinal ( Abdomen): normal bowel sound s, soft, nontender Musculoskeletal: moves extremities Skin: no rashes, warm an d dry Neurologic: PERRL, EOMI, no fa ce palsy, no dysar thria, moves extre mities Psychiatric: A+Ox3, euthymic af fect, answers appr opriately Results & Data Results & Data Vital Signs (Past 12 Hours) Vital Signs Pulse Pulse Resp BP BP Pulse Ox Pulse Ox 09/28/23 09:00 97/55 L 09/28/23 09:00 63 19 94 09/28/23 08:18 98/60 L 09/28/23 08:18 60 21 95 09/28/23 08:00 64 25 H 93 09/28/23 08:00 09/28/23 07:35 60 16 98 09/28/23 07:00 113/72 09/28/23 07:00 60 19 96 09/28/23 06:36 09/28/23 04:45 09/28/23 03:44 65 20 100/62 96 09/28/23 03:42 64 20 100/62 96 09/28/23 03:40 64 21 96 09/28/23 03:30 60 28 H 97 09/28/23 03:20 62 29 H 95 09/28/23 03:10 60 27 H 97 09/28/23 03:00 60 26 H 97 09/28/23 03:00 100/62 09/28/23 02:50 79 19 94 09/28/23 02:40 74 22 90 09/28/23 02:30 60 16 96 09/28/23 02:20 61 24 96 09/28/23 02:10 60 27 H 94 09/28/23 02:00 108/59 L 09/28/23 02:00 61 17 94 09/28/23 01:50 63 17 87 L 09/28/23 01:40 66 15 94 09/28/23 01:30 77 25 H 94 09/28/23 01:20 63 18 96 09/28/23 01:16 09/28/23 01:10 60 24 94 09/28/23 01:00 107/55 L 09/28/23 01:00 62 25 H 95 09/28/23 00:50 75 19 96 09/28/23 00:40 64 20 96 09/28/23 00:30 64 24 96 09/28/23 00:20 61 25 H 96 09/28/23 00:10 99/48 L 09/28/23 00:10 68 18 95 09/28/23 00:00 60 26 H 95 09/27/23 23:50 60 28 H 95 09/27/23 23:40 65 30 H 94 09/27/23 23:33 69 93 09/27/23 23:30 61 30 H 88 L 09/27/23 23:29 90 09/27/23 23:20 62 25 H 89 L 09/27/23 23:13 65 09/27/23 23:10 69 28 H 88 L 09/27/23 23:00 67 14 89 L 09/27/23 22:50 63 26 H 92 09/27/23 22:40 64 26 H 93 09/27/23 22:30 63 25 H 93 09/27/23 22:20 66 25 H 91 O2 Del Method O2 Del Method O2 Flow Rate O2 Flow Rate 09/28/23 09:00 09/28/23 09:00 09/28/23 08:18 09/28/23 08:18 09/28/23 08:00 09/28/23 08:00 Nasal Cannula 3 09/28/23 07:35 Nasal Cannula 2 09/28/23 07:00 09/28/23 07:00 09/28/23 06:36 Nasal Cannula 3 09/28/23 04:45 Nasal Cannula 3 09/28/23 03:44 Oxymask 3 09/28/23 03:42 Oxymask 3 09/28/23 03:40 09/28/23 03:30 09/28/23 03:20 09/28/23 03:10 09/28/23 03:00 09/28/23 03:00 09/28/23 02:50 09/28/23 02:40 09/28/23 02:30 09/28/23 02:20 09/28/23 02:10 09/28/23 02:00 09/28/23 02:00 09/28/23 01:50 09/28/23 01:40 09/28/23 01:30 09/28/23 01:20 09/28/23 01:16 Oxymask 3 09/28/23 01:10 09/28/23 01:00 09/28/23 01:00 09/28/23 00:50 09/28/23 00:40 09/28/23 00:30 09/28/23 00:20 09/28/23 00:10 09/28/23 00:10 09/28/23 00:00 09/27/23 23:50 09/27/23 23:40 09/27/23 23:33 Oxymask 6 09/27/23 23:30 09/27/23 23:29 Nasal Cannula 3 09/27/23 23:20 09/27/23 23:13 09/27/23 23:10 09/27/23 23:00 09/27/23 22:50 09/27/23 22:40 09/27/23 22:30 09/27/23 22:20 Laboratory Results 09/28/23 09/27/23 09/27/23 Range/Units 02:14 19:56 17:29 WBC 8.02 (4.8-10.8) K/ul RBC 4.33 L (4.70-6.10) M/uL Hgb 12.7 L (14.0-18.0) g/dl POC Hgb (14.0-18.0) g/dl Hct 39.9 L (42.0-52.0) % POC Hct (42-52) % MCV 92.1 (80.0-100.0) fL MCH 29.3 (25.0-34.0) pg MCHC 31.8 L (32.0-36.0) g/dL RDW Std Deviation 49.6 H (36.4-46.3) fL RDW Coeff of Selena 14.7 H (11.5-14.5) % Plt Count 231 (130-400) K/uL MPV 10.5 (9.4-12.4) fL Immature Gran % (Auto) % Neut % (Auto) % Lymph % (Auto) % Ector % (Auto) % Eos % (Auto) % Baso % (Auto) % Neut # (Auto) (1.40-6.50) K/uL Lymph # (Auto) (1.20-3.40) K/uL Ector # (Auto) (0.11-0.59) K/uL Eos # (Auto) (0.00-0.50) K/uL Baso # (Auto) (0.00-0.20) K/uL Immature Gran # (Auto) (0.01-0.20) K/uL PT (9.0-12.0) Seconds INR (0.9-1.1) APTT (21-31) Seconds PTT Ratio VBG pH (7.36-7.41) VBG pCO2 (38-50) mmHg VBG pO2 mmHg VBG HCO3 mmol/L VBG O2 Saturation % VBG Base Excess mEq/L POC Sodium (135-144) mmol/L Sodium 138 (136-145) mmol/L POC Potassium (3.3-5.0) mmol/L Potassium 4.1 (3.5-5.1) mmol/L POC Chloride (101-112) mmol/L Chloride 106 (98-107) mmol/L Carbon Dioxide 26 (21-32) mmol/L POC Total CO2 (24-31) mmol/L Anion Gap 6 (3-11) POC Anion Gap (16-25) mmol/L POC BUN (7-18) mg/dl BUN 34 H (6-23) mg/dl Creatinine 1.30 (0.6-1.4) mg/dl POC Creatinine (0.6-1.3) mg/dl Est Cr Clr Drug Dosing 41.2 ml/min Est GFR ( Amer) 57.3 ml/min Est GFR (Non-Af Amer) 49.4 ml/min BUN/Creatinine Ratio 26.2 H (10-20) Glucose 124 H (70-99(Fasting)) mg/dl POC Glucose (other) (70-99) mg/dl Calcium 8.6 (8.6-10.3) mg/dl POC Ioniz Calcium Jacqueline (1.12-1.32) mmol/l Magnesium 1.8 (1.7-2.4) mg/dl Troponin I High Sens 28.3 H 31.0 H 27.1 H (0-20) pg/ml B-Natriuretic Peptide (0-100) pg/ml Lipase (11-82) U/L Procalcitonin (0-0.5) ng/ml Adenovirus (PCR) (NotDetected) B. pertussis DNA (PCR) (NotDetected) B.parapertussis DNA PCR (NotDetected) C. pneumoniae DNA (PCR) (NotDetected) Coronavirus OC43 (PCR) (NotDetected) Coronavirus HKU1 (PCR) (NotDetected) Coronavirus 229E (PCR) (NotDetected) SARS-CoV-2 (PCR) (NotDetected) Coronavirus NL63 (PCR) (NotDetected) Human Metapneumovir PCR (NotDetected) Influenza Type A (PCR) (NotDetected) Influenza Type B (PCR) (NotDetected) M. pneumoniae (PCR) (NotDetected) Parainfluenza 1 (PCR) (NotDetected) Parainfluenza 2 (PCR) (NotDetected) Parainfluenza 3 (PCR) (NotDetected) Parainfluenza 4 (PCR) (NotDetected) RSV (PCR) (NotDetected) Entero/Rhino (PCR) (NotDetected) 09/27/23 09/27/23 09/27/23 Range/Units 14:46 14:36 14:35 WBC 9.27 (4.8-10.8) K/ul RBC 4.99 (4.70-6.10) M/uL Hgb 15.1 (14.0-18.0) g/dl POC Hgb 15.6 (14.0-18.0) g/dl Hct 45.6 (42.0-52.0) % POC Hct 46 (42-52) % MCV 91.4 (80.0-100.0) fL MCH 30.3 (25.0-34.0) pg MCHC 33.1 (32.0-36.0) g/dL RDW Std Deviation 49.6 H (36.4-46.3) fL RDW Coeff of Selena 15.0 H (11.5-14.5) % Plt Count 253 (130-400) K/uL MPV 10.9 (9.4-12.4) fL Immature Gran % (Auto) 0.5 % Neut % (Auto) 83.0 % Lymph % (Auto) 7.7 % Ector % (Auto) 7.6 % Eos % (Auto) 0.6 % Baso % (Auto) 0.6 % Neut # (Auto) 7.69 H (1.40-6.50) K/uL Lymph # (Auto) 0.71 L (1.20-3.40) K/uL Ector # (Auto) 0.70 H (0.11-0.59) K/uL Eos # (Auto) 0.06 (0.00-0.50) K/uL Baso # (Auto) 0.06 (0.00-0.20) K/uL Immature Gran # (Auto) 0.05 (0.01-0.20) K/uL PT 11.2 (9.0-12.0) Seconds INR 1.0 (0.9-1.1) APTT 32 H (21-31) Seconds PTT Ratio 1.1 VBG pH 7.36 (7.36-7.41) VBG pCO2 53 H (38-50) mmHg VBG pO2 21 mmHg VBG HCO3 30 mmol/L VBG O2 Saturation < 60.0 % VBG Base Excess 3.2 mEq/L POC Sodium 141 (135-144) mmol/L Sodium 140 (136-145) mmol/L POC Potassium 4.1 (3.3-5.0) mmol/L Potassium 4.1 (3.5-5.1) mmol/L POC Chloride 104 (101-112) mmol/L Chloride 106 (98-107) mmol/L Carbon Dioxide 27 (21-32) mmol/L POC Total CO2 26 (24-31) mmol/L Anion Gap 7 (3-11) POC Anion Gap 16.0 (16-25) mmol/L POC BUN 32 H (7-18) mg/dl BUN 32 H (6-23) mg/dl Creatinine 1.34 (0.6-1.4) mg/dl POC Creatinine 1.5 H (0.6-1.3) mg/dl Est Cr Clr Drug Dosing 40.0 ml/min Est GFR ( Amer) 55.2 ml/min Est GFR (Non-Af Amer) 47.6 ml/min BUN/Creatinine Ratio 23.9 H (10-20) Glucose 102 H (70-99(Fasting)) mg/dl POC Glucose (other) 106 H (70-99) mg/dl Calcium 9.2 (8.6-10.3) mg/dl POC Ioniz Calcium Jacqueline 1.17 (1.12-1.32) mmol/l Magnesium (1.7-2.4) mg/dl Troponin I High Sens 22.1 H (0-20) pg/ml B-Natriuretic Peptide 236 H (0-100) pg/ml Lipase 30 (11-82) U/L Procalcitonin < 0.05 (0-0.5) ng/ml Adenovirus (PCR) Not Detected (NotDetected) B. pertussis DNA (PCR) Not Detected (NotDetected) B.parapertussis DNA PCR Not Detected (NotDetected) C. pneumoniae DNA (PCR) Not Detected (NotDetected) Coronavirus OC43 (PCR) Not Detected (NotDetected) Coronavirus HKU1 (PCR) Not Detected (NotDetected) Coronavirus 229E (PCR) Not Detected (NotDetected) SARS-CoV-2 (PCR) Not Detected (NotDetected) Coronavirus NL63 (PCR) Not Detected (NotDetected) Human Metapneumovir PCR Not Detected (NotDetected) Influenza Type A (PCR) Not Detected (NotDetected) Influenza Type B (PCR) Not Detected (NotDetected) M. pneumoniae (PCR) Not Detected (NotDetected) Parainfluenza 1 (PCR) Not Detected (NotDetected) Parainfluenza 2 (PCR) Not Detected (NotDetected) Parainfluenza 3 (PCR) Not Detected (NotDetected) Parainfluenza 4 (PCR) Not Detected (NotDetected) RSV (PCR) Not Detected (NotDetected) Entero/Rhino (PCR) Not Detected (NotDetected) Medications Administered Current Inpatient Medications Acetaminophen (Acetaminophen 325 Mg Tab) 650 mg PO Q4H PRN PRN Reason: Pain or Fever Stop: 10/27/23 18:34 Albuterol (Albut/Ipratrop 3mg/0.5mg Neb 3 Ml Vial) 3 ml NEB QIDR [facility]; Protocol Stop: 10/27/23 18:59 Last Admin: 09/28/23 07:25 Dose: 3 ml Amiodarone HCl (Amiodarone 200 Mg Tab) 200 mg PO [facility] Stop: 10/28/23 08:59 Last Admin: 09/28/23 08:17 Dose: 200 mg Apixaban (Apixaban 5 Mg Tablet) 5 mg PO BID [facility] Stop: 10/27/23 20:59 Last Admin: 09/28/23 08:18 Dose: 5 mg Cyanocobalamin (Cyanocobalamin (B-12) 500 Mcg Tablet) [facility] Stop: 10/28/23 08:59 Last Admin: 09/28/23 08:18 Dose: 1,000 mcg Finasteride (Finasteride 5 Mg Tab) 5 mg PO QAM [facility] Stop: 10/28/23 08:59 Last Admin: 09/28/23 08:18 Dose: 5 mg Folic Acid (Folic Acid 1 Mg Tab) 1 mg PO Q2D@0900 [facility] Stop: 10/29/23 08:59 Guaifenesin (Guaifenesin 600 Mg Tabcr) 600 mg PO Q12 [facility] Stop: 10/28/23 20:59 Ampicillin Sodium/Sulbactam Sodium 3,000 mg/ Sodium Chloride 100 mls @ 100 mls/hr IV Q6H [facility] Stop: 10/04/23 18:59 Last Infusion: 09/28/23 08:42 Dose: Infused Losartan Potassium (Losartan Potassium 50 Mg Tab) 100 mg PO QAM [facility] Stop: 10/28/23 08:59 Last Admin: 09/28/23 08:19 Dose: 100 mg Metoprolol Tartrate (Metoprolol Tartrate 25 Mg Tab) 12.5 mg PO BID [facility] Stop: 10/27/23 20:59 Last Admin: 09/28/23 08:19 Dose: 12.5 mg Pantoprazole Sodium (Pantoprazole 40 Mg Tab) 40 mg PO [facility] Stop: 10/28/23 08:59 Last Admin: 09/28/23 08:19 Dose: 40 mg Tamsulosin HCl (Tamsulosin Hcl 0.4 Mg Cap) 0.4 mg PO [facility] Stop: 10/27/23 20:59 Last Admin: 09/27/23 20:41 Dose: 0.4 mg Vitamin D (Cholecalciferol 1,000 Units 25 Mcg Tab) 1,000 units PO [facility] Stop: 10/27/23 20:59 Last Admin: 09/27/23 20:37 Dose: 1,000 units
--- NOTE | 2023-09-28 11:37 | Electrocardiogram Report ---
Test Reason : Blood Pressure : / mmHG Vent. Rate : 077 BPM Atrial Rate : 077 BPM P-R Int : 190 ms QRS Dur : 154 ms QT Int : 430 ms P-R-T Axes : 038 -62 100 degrees QTc Int : 486 ms Atrial-sensed ventricular-paced rhythm Abnormal ECG When compared with ECG of 01-AUG-2022 17:53, Vent. rate has increased BY 7 BPM Confirmed by Salty Faith ([id number]) on 09/28/2023 11:37:02 AM Referred By: REFERRED SELF Confirmed By:Salty Faith
--- NOTE | 2023-09-28 15:38 | Cardiology Consultation ---
Date of Consultation September 28, 2023 Assessment & Plan (1) Acute hypoxic respiratory failure: (2) Paroxysmal atrial fibrillation: (3) Complete AV block: (4) Pacemaker: (5) Hypertension: Plan Assessment: 88 year old male with acute hypoxia following recent COURTNEY and DCCV the day prior. Plan: 1. Acute hypoxic Respiratory failure -Chest xray does suggest small bilateral pleural effusions and bibaslar opacities with or without superimposed aspiration/pneumonia -Consider CT chest for further evaluation. -WBC normal -BNP with mild elevation. 236 Denies any swelling of the extremities or abdomen. -Troponin with mild elevation, peaked and trending down 31.0. Recent DCCV and now hypoxic state. -Patient reports improvement in symptoms. does not appear hypervolemic on physical exam. Concern for aspiration -Continue to monitor resp. status. supplemental O2 as needed. -Continue IV antibiotics, nebulizers and steroids if indicated. -Will obtain echocardiogram to assess overall structure and function given acute change since procedure. 2. paroxysmal A-fib -Known history. S/P COURTNEY with DCCV on 09/26/23 -Remains sinus/paced on telemetry -Normal device function -Continue Amiodarone, Metoprolol tartrate and Eliquis as per current regimen. 3. Complete AV Block 4. Pacemaker -Implant date 2013 -Interrogation shows normal device function. 5. HTN -slightly below target. Likely in the setting of an acute infectious process -Monitor closely. may need to consider reducing dose of Losartan if low bp's persist. Case has been discussed with Dr. Childs. Further recommendations regarding plan of care as per his assessment. I spent a total of 40 minutes on the date of service in preparation, delivery, documentation of the care provided to the patient excluding any time spent in the performance of separately billed services. AZAEL Burns [facility] Cardiology [facility] Supervising Physician Co-Signing Physician Notes Supervising Physician Attestation: I have personally performed a history and physical examination on the patient. I agree with the physician food and beverage assistant manager's findings and plan as documented. Eric Childs, DO History of Present Illness Reason for Consultation: Hypoxia Requesting Physician: [facility] Hospitalist Attending Physician: Reji Mitchell MD History of Present Illness HPI: patient is a 88 year-old male with PMHx significant for paroxysmal atrial fibrillation anticoagulated on Eliquis, complete AV block s/p pacemaker, , AI, MR, HTN, and GERD that presentd to the ED with acute complaints of shortness of breath. Patient underwent a COURTNEY and DCCV 09/26/23 at [facility] after a recent pacemaker device interrogation done on 08/31/23 noted persistent A-fib for the past 3 months. at bedside and states patient underwent procedure and was started on Amiodarone prior to discharge (Plan 200mg BID x14 days then reduce to 200mg Daily),and was feeling well at that time. Patient states that he woke up yesterday feeling his usual state of health but as the day progressed he become progressively more short of breath. Denies any chest pain, pressure, palpitations, no swelling of the abdomen or extremities. No associated URI symtoms. He presented to the ED and was found to be hypoxic 84% on room air, therefore placed on supplemental O2 via nasal cannula. BNP with mild elevation chest xray demonstrates bilateral lower lung opacities. He was given a nebulizer tx, Furosemide 40mg IV x1 dose and Prednisone. patient is resting in bed with spouse at bedside. he continues to require supplemental O2, but reports that he is feeling better since arrival. Telemetry shows Paced rhythm. no A-fib noted. EKG Atrial sensed, V-paced Rate 77bpm. No acute ST-T wave changes. Pacemaker interrogation demonstrates normal device function. No events. 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 [phone]. PMHx: AV block s/p dual chamber PPM 2013 ([employer] dual chamber pacemaker) PAT, PVC, Paroxysmal A-fib Nonrheumatic Aortic valve stenosis Aortic insufficiency Mitral regurgitation HTN GERD BPH Allergies Allergy/AdvReac Type Severity Reaction Status Date / Time lisinopril AdvReac Intermediate Cough Verified 09/27/23 16:07 codeine AdvReac Mild HEADACHES Verified 09/27/23 16:07 Home Medications Medication Instructions Recorded Confirmed Type acetaminophen 500 mg tablet 1,000 mg PO Q6H PRN Pain 04/05/22 09/27/23 History cholecalciferol (vitamin D3) 25 25 mcg PO HS 04/05/22 09/27/23 History mcg (1,000 unit) capsule (Vitamin D3) cyanocobalamin (vitamin B-12) 1,000 mcg PO QAM 04/05/22 09/27/23 History 1,000 mcg capsule finasteride 5 mg tablet 5 mg PO QAM 04/05/22 09/27/23 History folic acid 1 mg tablet 1 mg PO Q2D 04/05/22 09/27/23 History losartan 100 mg tablet 100 mg PO QAM 04/05/22 09/27/23 History metoprolol tartrate 25 mg tablet 12.5 mg PO BID 04/05/22 09/27/23 History pantoprazole 40 mg tablet,delayed 40 mg PO QAM 04/05/22 09/27/23 History release tamsulosin 0.4 mg capsule 0.4 mg PO HS 04/05/22 09/27/23 History amiodarone 200 mg tablet See Rx Instructions .Route .COMPLEX 09/27/23 09/27/23 History apixaban 5 mg tablet (Eliquis) 5 mg PO BID 09/27/23 09/27/23 History Patient History Medical History Compression fracture of lumbar vertebra with delayed healing TGA (transient global amnesia) hx-"had it once and never had it again" History of atrial fibrillation f/u anu reyes History of thrombophlebitis left upper extremity in cephalic vein 04/15/21 Hepatic steatosis mild per CT abdomen pelvis 07/11/21 Complete AV block s/p pacemaker Enlarged prostate GERD (gastroesophageal reflux disease) controlled, stable per pt Pacemaker pt is pacer dependent; placed 2013, [employer] pacemaker, anu; f/u anu stinson Hypertension controlled, stable per pt Surgical History Hx of vasectomy Hx of colonoscopy H/O umbilical hernia repair History of cataract surgery R/L History of permanent cardiac pacemaker placement 2013 AND BATTERY REPLACEMENT 2020 Family History Other No known health problems Social History Smoking Status: Never smoker Second Hand Exposure: No; Do You Dip or Chew Tobacco: No; Hx Alcohol Use: No Hx Substance Use: No Preferred Language: Venezuelan Communication Ability: Effective Helium Arc Welder Required: No Beliefs That Will Affect Care: None Current Living Situation: Spouse current occupational status: other 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 [employer] Feels Safe at Home: Yes Assistive Devices: Cane, Glasses and Walker Review of Systems Review of Systems: All systems reviewed & are unremarkable except as noted in HPI & below Physical Exam Constitutional: well developed, well nourished and + ill appearing; no acute distress Neck: normal visual inspection and trachea midline Respiratory: normal respiratory effort and + respiratory distress Auscultation: + diminished lung sounds (bilateral bases); no crackles, no rales and no wheezes Cardiovascular: Rate/Rhythm: regular rate and regular rhythm Heart Sounds: normal S1, normal S2 and + murmur (1/6 systolic ) Vessels: dorsalis pedis pulses present; no JVD Skin: no rashes, warm and dry Psychiatric: A+Ox3, euthymic affect Results & Data Vital Signs (Past 12 Hours) Vital Signs Temp Pulse Pulse Resp BP BP Pulse Ox 09/28/23 11:27 36.4 C L 09/28/23 11:09 36.4 C L 09/28/23 11:00 60 19 96 09/28/23 10:39 60 17 98 09/28/23 10:00 93/58 L 09/28/23 10:00 64 25 H 95 09/28/23 09:00 97/55 L 09/28/23 09:00 63 19 94 09/28/23 08:18 98/60 L 09/28/23 08:18 60 21 95 09/28/23 08:00 64 25 H 93 09/28/23 08:00 09/28/23 07:35 60 16 98 09/28/23 07:00 113/72 09/28/23 07:00 60 19 96 09/28/23 06:36 09/28/23 04:45 09/28/23 03:44 65 20 100/62 96 09/28/23 03:42 64 20 100/62 96 09/28/23 03:40 64 21 96 09/28/23 03:30 60 28 H 97 09/28/23 03:20 62 29 H 95 09/28/23 03:10 60 27 H 97 O2 Del Method O2 Flow Rate 09/28/23 11:27 09/28/23 11:09 09/28/23 11:00 09/28/23 10:39 Nasal Cannula 2 09/28/23 10:00 09/28/23 10:00 09/28/23 09:00 09/28/23 09:00 09/28/23 08:18 09/28/23 08:18 09/28/23 08:00 09/28/23 08:00 Nasal Cannula 3 09/28/23 07:35 Nasal Cannula 2 09/28/23 07:00 09/28/23 07:00 09/28/23 06:36 Nasal Cannula 3 09/28/23 04:45 Nasal Cannula 3 09/28/23 03:44 Oxymask 3 09/28/23 03:42 Oxymask 3 09/28/23 03:40 09/28/23 03:30 09/28/23 03:20 09/28/23 03:10 Laboratory Results Cardiac Enzymes 09/27/23 09/27/23 09/27/23 Range/Units 14:36 17:29 19:56 Troponin I High Sens 22.1 H 27.1 H 31.0 H (0-20) pg/ml B-Natriuretic Peptide 236 H (0-100) pg/ml 09/28/23 Range/Units 02:14 Troponin I High Sens 28.3 H (0-20) pg/ml B-Natriuretic Peptide (0-100) pg/ml Coagulation 09/27/23 Range/Units 14:36 PT 11.2 (9.0-12.0) Seconds APTT 32 H (21-31) Seconds B-Natriuretic Peptide 236 H (0-100) pg/ml CBC 09/28/23 Range/Units 02:14 WBC 8.02 (4.8-10.8) K/ul RBC 4.33 L (4.70-6.10) M/uL Hgb 12.7 L (14.0-18.0) g/dl Hct 39.9 L (42.0-52.0) % Plt Count 231 (130-400) K/uL Comprehensive Metabolic Panel 09/27/23 09/28/23 Range/Units 14:36 02:14 Sodium 140 138 (136-145) mmol/L Potassium 4.1 4.1 (3.5-5.1) mmol/L Chloride 106 106 (98-107) mmol/L Carbon Dioxide 27 26 (21-32) mmol/L BUN 32 H 34 H (6-23) mg/dl Creatinine 1.34 1.30 (0.6-1.4) mg/dl Glucose 102 H 124 H (70-99(Fasting)) mg/dl Calcium 9.2 8.6 (8.6-10.3) mg/dl Intake and Output 09/28/23 09/28/23 09/28/23 06:59 14:59 22:59 Intake Total 100 / 200 200 / 200 Output Total 1779 Balance 70 / -1580 200 / 200 Intake: IV 100 / 200 200 / 200 Ampicillin/Sulbactam Sod 3,000 100 / 200 200 / 200 mg In Sodium Chlor 0.9% Mini-B 100 ml @ 100 mls/hr IV Q6H [facility] Rx#:[id number] Output: Urine 1779 Other: # Unmeasured Voids 3 Weight 79.3 kg Medications Administered Chest Xray 09/28/23: Small bilateral pleural effusions, more prominent than in prior exam. Bilateral lower lung airspace opacities are slightly less prominent and likely represent atelectasis with or without superimposed aspiration/pneumonia. Stable cardiomegaly. 05/31/2022: negative nuclear lexiscan (obtained from [facility]) LVEF 54% medium sized reversible defect mild severity present in the basal to mid anterior gonzáles,imprves by CT correction. probable artifact.
[2023-09-28] MEDS: CHOLECALCIFEROL 25 MCG (1000 UNITS) TAB PO SCH (21:05)
[2023-09-28] MEDS: guaiFENesin 600 MG TABCR PO SCH (21:05)
--- NOTE | 2023-09-29 07:55 | Hospitalist Progress Note ---
Date of Service September 29, 2023 Assessment & Plan (1) Acute hypoxic respiratory failure: Plan: Poss. aspiration pna vs. CHF, pAfib Patient presenting from home with reports of worsening shortness of breath. Per patient report, he underwent COURTNEY guided cardioversion at [facility]. 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 Vijay Kate, [facility]. [phone]. Office was contacted and records re: his cardioversion reviewed Cardiology - keoer also consulted and able to review his outside med. records Echocardiogram repeated - w/o sign. changes from previous one from [facility] Plan to continue w/ IV lasix as pt still tachypneic, even though currently on RA In the ED, patient found to be hypoxic on room air at 84%, requiring 5 L of oxygen nasal cannula CXR shows bilateral lower lobe opacities Mildly elevated proBNP Doubt PE given anticoagulation with Eliquis and no missed doses ? CHF from IV fluid administration and/or aspiration from procedure 05/2022-EF 55% on pharmacologic nuclear stress test S/p Lasix 40 mg IV in the ED. Hold on additional doses at this time and monitor response. Patient is Lasix john. Empirically started on Unasyn for aspiration, noted normal procalcitonin and no leukocytosis Received prednisone 50 mg in the ED, will hold on additional steroids at this time. Will continue with scheduled nebs. Wean O2 as able Currently down to 2L of suppl. O2 and feeling better overall. BP on lower side, plan to decrease losartan dose. Further med changes as per cardiology. 09/29 - Pt currently on RA but mildly tachypneic. Received additional dose of IV lasix per cardiology Per cardiology - * Presents with ongoing dyspnea exertion question of aspiration pneumonia component versus CHF * small bilateral pleural effusions noted on chest x-ray * Patient received dose of IV furosemide 20 mg on 09/29/2023, will plan on furosemide 40 mg IV daily starting 09/30/2023 * Continue ampicillin/sulbactam for recommend transition to oral antibiotics soon as possible, is at present, feel symptoms likely suggest cardiac etiology. * Continue Eliquis, metoprolol , losartan * Continue amiodarone for now, however EKG and telemetry suggest recurrence of atrial fibrillation, and based on his echo findings I am not optimistic he will be able to maintain sinus rhythm. (2) Paroxysmal atrial fibrillation: Plan: Per patient, s/p COURTNEY guided cardioversion yesterday at [facility] - records reviwed Per outpatient cardiology note on 08/31/2023, patient was started on amiodarone. Per patient, on amiodarone 200mg BID dosing, to start amiodarone 200mg daily today -- will continue. Continue metoprolol for rate control Continue Eliquis Further med changes as per cardiology (3) Complete AV block: (4) Pacemaker: Plan: Device interrogation ordered (5) Hypertension: Plan: BP on lower side, continue metoprolol and decreased losartan. Follow recs from cardiology DVT PROPHYLAXIS On Eliquis Admission and Anticipated Discharge Date Admission Date: September 27, 2023 Subjective Pt seen in follow up of hypoxia s/p cardioversion from Afib at [facility] was given IV lasix , prednisone, breathing treatment on admission, also started on abx for poss. pna Currently laying sitting up in bed in NAD, on RA. Denies any shortness of breath however he is mildly tachypneic while talking to me at rest. Denies chest pain, Has minimal cough. No fever, chills, abd. pain, n/v. Seen by cardiology earlier, and given IV Lasix. Review of Systems Review of Systems: All systems reviewed & are unremarkable except as noted in Subjective Physical Exam Physical Exam: Constitutional: WD/WN, M in no acu te distress Eyes: PERRL, conjunctiva e normal, anicteri c sclerae ENMT: external ear and n ose normal, oropha rynx normal Respiratory: normal respiratory effort; no respir atory distress , + diminished lung s ounds Cardiovascular: Rate/Rhythm: regul ar rate and regula r rhythm Vessels: normal peripheral pulses Extremiti es: + edema (+1 ed yariel RLE, chronic) Gastrointestinal ( Abdomen): normal bowel sound s, soft, nontender Musculoskeletal: moves extremities Skin: no rashes, warm an d dry Neurologic: PERRL, EOMI, no fa ce palsy, no dysar thria, moves extre mities Psychiatric: A+Ox3, euthymic af fect, answers appr opriately Results & Data Results & Data Vital Signs (Past 12 Hours) Vital Signs Temp Pulse Pulse Resp BP Pulse Ox O2 Del Method 09/29/23 07:49 36.5 C 70 20 134/78 92 Room Air 09/29/23 07:32 70 09/29/23 07:01 88 20 91 Room Air 09/29/23 03:25 36.7 C 70 131/84 93 Room Air 09/28/23 23:35 36.7 C 70 18 117/67 93 Room Air 09/28/23 20:06 72 16 Nasal Cannula 09/28/23 20:04 36.6 C 70 18 117/69 95 Nasal Cannula O2 Flow Rate 09/29/23 07:49 09/29/23 07:32 09/29/23 07:01 09/29/23 03:25 09/28/23 23:35 09/28/23 20:06 2 09/28/23 20:04 2 Medications Administered Current Inpatient Medications Acetaminophen (Acetaminophen 325 Mg Tab) 650 mg PO Q4H PRN PRN Reason: Pain or Fever Stop: 10/27/23 18:34 Albuterol (Albut/Ipratrop 3mg/0.5mg Neb 3 Ml Vial) 3 ml NEB QIDR [facility]; Protocol Stop: 10/27/23 18:59 Last Admin: 09/29/23 07:01 Dose: 3 ml Amiodarone HCl (Amiodarone 200 Mg Tab) [facility] [place] Stop: 10/28/23 08:59 Last Admin: 09/28/23 08:17 Dose: 200 mg Apixaban (Apixaban 5 Mg Tablet) 5 mg PO BID [facility] Stop: 10/27/23 20:59 Last Admin: 09/28/23 21:06 Dose: 5 mg Cyanocobalamin (Cyanocobalamin (B-12) 500 Mcg Tablet) 1,000 mcg [facility] [place] Stop: 10/28/23 08:59 Last Admin: 09/28/23 08:18 Dose: 1,000 mcg Finasteride (Finasteride 5 Mg Tab) 5 mg PO QAM [facility] Stop: 10/28/23 08:59 Last Admin: 09/28/23 08:18 Dose: 5 mg Folic Acid (Folic Acid 1 Mg Tab) 1 mg PO Q2D@0900 [facility] Stop: 10/29/23 08:59 Guaifenesin (Guaifenesin 600 Mg Tabcr) 600 mg PO Q12 [facility] Stop: 10/28/23 20:59 Last Admin: 02/01/24 21:05 Dose: 600 mg Ampicillin Sodium/Sulbactam Sodium 3,000 mg/ Sodium Chloride 100 mls @ 100 mls/hr IV Q6H [facility] Stop: 10/04/23 18:59 Last Infusion: 09/29/23 06:34 Dose: Infused Losartan Potassium (Losartan Potassium 50 Mg Tab) [facility] [place] Stop: 10/29/23 08:59 Metoprolol Tartrate (Metoprolol Tartrate 25 Mg Tab) 12.5 mg PO BID [facility] Stop: 10/27/23 20:59 Last Admin: 09/28/23 21:05 Dose: 12.5 mg Pantoprazole Sodium (Pantoprazole 40 Mg Tab) 40 [facility] [place] Stop: 10/28/23 08:59 Last Admin: 09/28/23 08:19 Dose: 40 mg Tamsulosin HCl (Tamsulosin Hcl 0.4 Mg Cap) 0.4 mg PO [facility] Stop: 10/27/23 20:59 Last Admin: 09/28/23 21:04 Dose: 0.4 mg Vitamin D (Cholecalciferol 1,000 Units 25 Mcg Tab) 25 mcg PO [facility] Stop: 10/28/23 20:59 Last Admin: 09/28/23 21:05 Dose: 25 mcg
[2023-09-29 08:57] LABS: Hemoglobin 13.5 g/dl (14.0-18.0); Mean Corpuscular Hemoglobin 29.4 pg (25.0-34.0); Mean Corpuscular Hgb Conc 32.1 g/dL (32.0-36.0); Mean Corpuscular Volume 91.5 fL (80.0-100.0); Mean Platelet Volume 10.6 fL (9.4-12.4); Platelet Count 247 K/uL (130-400); RDW Coefficient of Variation 15.1 % (11.5-14.5); RDW Standard Deviation 50.3 fL (36.4-46.3); Red Blood Count 4.59 M/uL (4.70-6.10); White Blood Count 7.67 K/ul (4.8-10.8)
[2023-09-29 09:13] LABS: BUN Creatinine Ratio 30.2 (10-20); Creatinine Clr Calc Pharmacy 48.1 ml/min; Est GFR (African American) 65.7 ml/min; Est GFR (Non-African American) 56.7 ml/min; Magnesium 1.9 mg/dl (1.7-2.4); Phosphorus 2.9 mg/dl (2.5-4.9); Potassium 3.9 mmol/L (3.5-5.1)
[2023-09-29] MEDS: FOLIC ACID 1 MG TAB PO SCH (10:02)
[2023-09-29] MEDS: LOSARTAN POTASSIUM 50 MG TAB PO SCH (10:03)
--- NOTE | 2023-09-29 12:01 | Cardiology Progress Note ---
Date of Service September 29, 2023 Assessment & Plan (1) Acute hypoxic respiratory failure: (2) Paroxysmal atrial fibrillation: (3) Complete AV block: (4) Pacemaker: (5) Hypertension: Plan Assessment: 88 year old male with acute hypoxia following recent COURTNEY and DCCV the day prior. Plan: 1. Acute hypoxic Respiratory failure -Chest xray does suggest small bilateral pleural effusions and bibaslar opacities with or without superimposed aspiration/pneumonia -Consider CT chest for further evaluation. -WBC normal -BNP with mild elevation. 236 Denies any swelling of the extremities or abdomen. -Troponin with mild elevation, peaked and trending down 31.0. Recent DCCV and now hypoxic state. -Patient reports improvement in symptoms. does not appear hypervolemic on physical exam. Concern for aspiration -Continue to monitor resp. status. supplemental O2 as needed. -Continue IV antibiotics, nebulizers and steroids if indicated. -Echocardiogram demonstrates no significant change since COURTNEY 2 days prior. 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 (not new). -given his valvular disease, cautious with fluid management in the setting of an acute infection. -Will given one time dose of Furosemide 20mg IV today. Renal function and electrolytes are stable. 2. paroxysmal A-fib -Known history. S/P COURTNEY with DCCV on 09/26/23 -Remains sinus/paced on telemetry -Normal device function -Continue Amiodarone, Metoprolol tartrate and Eliquis as per current regimen. 3. Complete AV Block 4. Pacemaker -Implant date 2013 -Interrogation shows normal device function. 5. HTN -Slight improvement. Likely in the setting of an acute infectious process -Monitor closely. Losartan reduced to 50mg PO QD, shows improvement. Case has been discussed with Dr. Childs. Further recommendations regarding plan of care as per his assessment. I spent a total of 30 minutes on the date of service in preparation, delivery, documentation of the care provided to the patient excluding any time spent in the performance of separately billed services. AZAEL Burns [facility] Admission and Anticipated Discharge Date Admission Date: September 27, 2023 Supervising Physician Co-Signing Physician Notes Attending attestation: Case reviewed with the advanced practitioner. I have personally performed a history and physical examination on the patient. I have reviewed the advanced practitioner's documentation on the date of service referenced in note, and I agree with, and take responsibility for the plan of care. Subjective: Patient with noted significant dyspnea on exertion when trying to lie supine. I witnessed him having difficulty catching his breath. He was able to ambulate to the restroom without supplemental oxygen. No cough, no fever Exam: Cardiovascular regular rhythm, 1/6 systolic murmur, no edema Data: EKG and telemetry today suggests that he has reverted from sinus rhythm with atrial sensing and ventricular paced rhythm back to atrial fibrillation with demand ventricular pacing Echocardiogram performed this hospital stay reveals LVEF in the range of 55 to 60%, with mild to moderate prolapse of the posterior mitral valve leaflet, and moderate to severe mitral regurgitation with an eccentric, wall impinging anteriorly directed jet. There is moderate tricuspid regurgitation findings unchanged compared to the report of the outside transesophageal echocardiogram performed at [facility] earlier this week Impression/ Plan: 88-year-old male with history of intermittent AV block for which he underwent implantation of a dual-chamber [employer] permanent pacemaker in 2013 Moderate aortic valve insufficiency Severe mitral valve insufficiency Previous paroxysmal atrial fibrillation with patient having reverted to just atrial fibrillation in April, Had been placed on anticoagulation and underwent transesophageal echocardiogram guided cardioversion at [facility] on 09/26/2023 * Presents with ongoing dyspnea exertion question of aspiration pneumonia component versus CHF * small bilateral pleural effusions noted on chest x-ray * Patient received dose of IV furosemide 20 mg on 09/29/2023, will plan on furosemide 40 mg IV daily starting 09/30/2023 * Continue ampicillin/sulbactam for recommend transition to oral antibiotics soon as possible, is at present, feel symptoms likely suggest cardiac etiology. * Continue Eliquis, metoprolol , losartan * Continue amiodarone for now, however EKG and telemetry suggest recurrence of atrial fibrillation, and based on his echo findings I am not optimistic he will be able to maintain sinus rhythm. I spent a total of 25 minutes coordinating, documenting, and providing care for this patient excluding time spent in the performance of separately billed services or time spent by another provider. Eric Childs, Subjective 09/29/23: patient seen and examined in follow up. Patient is sitting on the side of bed talking with spouse. Appears restless today, but is oriented to person, place, time and event. Denies any chest pain, pressure, palpitations. Reports improvement in his breathing and is currently on room air. Telemetry overnight demonstrates paced rhythm. no acute events overnight Reviewed labs, notes, vitals and diagnostics. Review of Systems Review of Systems: All systems reviewed & are unremarkable except as noted in HPI & below Physical Exam Constitutional: well developed and well nourished; no acute distress Neck: normal visual inspection and trachea midline Respiratory: normal respiratory effort and + respiratory distress Auscultation: + diminished lung sounds (bilateral bases); no crackles, no rales and no wheezes Cardiovascular: Rate/Rhythm: regular rate and regular rhythm Heart Sounds: normal S1, normal S2 and + murmur (1/6 systolic ) Vessels: dorsalis pedis pulses present; no JVD Skin: no rashes, warm and dry Psychiatric: A+Ox3, euthymic affect Results & Data Vital Signs (Past 12 Hours) Vital Signs Temp Pulse Pulse Resp BP Pulse Ox O2 Del Method 09/29/23 11:47 36.4 C L 70 19 116/68 92 Room Air 09/29/23 11:06 77 18 91 Room Air 09/29/23 07:49 36.5 C 70 20 134/78 92 Room Air 09/29/23 07:32 70 09/29/23 07:01 88 20 91 Room Air 09/29/23 03:25 36.7 C 70 131/84 93 Room Air Laboratory Results CBC 09/29/23 Range/Units 08:34 WBC 7.67 (4.8-10.8) K/ul RBC 4.59 L (4.70-6.10) M/uL Hgb 13.5 L (14.0-18.0) g/dl Hct 42.0 (42.0-52.0) % Plt Count 247 (130-400) K/uL Comprehensive Metabolic Panel 09/29/23 Range/Units 08:34 Sodium 143 (136-145) mmol/L Potassium 3.9 (3.5-5.1) mmol/L Chloride 108 H (98-107) mmol/L Carbon Dioxide 30 (21-32) mmol/L BUN 35 H (6-23) mg/dl Creatinine 1.16 (0.6-1.4) mg/dl Glucose 103 H (70-99(Fasting)) mg/dl Calcium 9.0 (8.6-10.3) mg/dl
[2023-09-29] MEDS: FUROSEMIDE INJ 20 MG/2 ML VIAL IV ONE (15:00)
[2023-09-30 06:18] LABS: Hematocrit (blood only) 41.6 % (42.0-52.0); Hemoglobin 13.5 g/dl (14.0-18.0); Mean Corpuscular Hemoglobin 29.7 pg (25.0-34.0); Mean Corpuscular Hgb Conc 32.5 g/dL (32.0-36.0); Mean Corpuscular Volume 91.4 fL (80.0-100.0); Mean Platelet Volume 10.8 fL (9.4-12.4); Platelet Count 257 K/uL (130-400); RDW Standard Deviation 49.9 fL (36.4-46.3); Red Blood Count 4.55 M/uL (4.70-6.10); White Blood Count 6.98 K/ul (4.8-10.8)
--- NOTE | 2023-09-30 06:23 | Electrocardiogram Report ---
Test Reason : Blood Pressure : / mmHG Vent. Rate : 061 BPM Atrial Rate : 061 BPM P-R Int : 206 ms QRS Dur : 178 ms QT Int : 506 ms P-R-T Axes : 000 -59 -16 degrees QTc Int : 509 ms AV dual-paced rhythm with frequent atrial-paced complexes Abnormal ECG When compared with ECG of 27-SEP-2023 14:30, Vent. rate has decreased BY 16 BPM Confirmed by Jose Braswell ([id number]) on 09/30/2023 6:22:43 AM Referred By: REFERRED SELF Confirmed By:Jose Braswell
[2023-09-30 06:34] LABS: BUN Creatinine Ratio 25.7 (10-20); Calcium 8.5 mg/dl (8.6-10.3); Creatinine Clr Calc Pharmacy 52.1 ml/min; Est GFR (African American) 70.9 ml/min; Est GFR (Non-African American) 61.1 ml/min; Potassium 3.7 mmol/L (3.5-5.1)
[2023-09-30] MEDS: FUROSEMIDE 40 MG/4 ML VIAL IV SCH (09:32)
--- NOTE | 2023-09-30 09:53 | Hospitalist Progress Note ---
Date of Service September 30, 2023 Assessment & Plan (1) Acute hypoxic respiratory failure: Plan: Poss. aspiration pna vs. CHF, pAfib Patient presenting from home with reports of worsening shortness of breath. Per patient report, he underwent COURTNEY guided cardioversion at [facility]. 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 Vijay Kate, [facility]. [phone]. Office was contacted and records re: his cardioversion reviewed Cardiology - keoer also consulted and able to review his outside med. records Echocardiogram repeated - w/o sign. changes from previous one from [facility] Plan to continue w/ IV lasix as pt still tachypneic, even though currently on RA In the ED, patient found to be hypoxic on room air at 84%, requiring 5 L of oxygen nasal cannula CXR shows bilateral lower lobe opacities Mildly elevated proBNP Doubt PE given anticoagulation with Eliquis and no missed doses ? CHF from IV fluid administration and/or aspiration from procedure 05/2022-EF 55% on pharmacologic nuclear stress test S/p Lasix 40 mg IV in the ED. Hold on additional doses at this time and monitor response. Patient is Lasix john. Empirically started on Unasyn for aspiration, noted normal procalcitonin and no leukocytosis Received prednisone 50 mg in the ED, will hold on additional steroids at this time. Will continue with scheduled nebs. Wean O2 as able Currently down to 2L of suppl. O2 and feeling better overall. BP on lower side, plan to decrease losartan dose. Further med changes as per cardiology. 09/29 - Pt currently on RA but mildly tachypneic. Received additional dose of IV lasix per cardiology Per cardiology - * Presents with ongoing dyspnea exertion question of aspiration pneumonia component versus CHF * small bilateral pleural effusions noted on chest x-ray * Patient received dose of IV furosemide 20 mg on 09/29/2023, will plan on furosemide 40 mg IV daily starting 09/30/2023 * Continue ampicillin/sulbactam for recommend transition to oral antibiotics soon as possible, is at present, feel symptoms likely suggest cardiac etiology. * Continue Eliquis, metoprolol , losartan * Continue amiodarone for now, however EKG and telemetry suggest recurrence of atrial fibrillation, and based on his echo findings I am not optimistic he will be able to maintain sinus rhythm. 09/30 Switched abx to PO augmentin. on iv lasix. Considering stopping amiodarone. pt continues to be in afib. (2) Paroxysmal atrial fibrillation: Plan: Per patient, s/p COURTNEY guided cardioversion yesterday at [facility] - records reviwed Per outpatient cardiology note on 08/31/2023, patient was started on amiodarone. Per patient, on amiodarone 200mg BID dosing, to start amiodarone 200mg daily today -- will continue. Continue metoprolol for rate control Continue Eliquis Further med changes as per cardiology (3) Complete AV block: (4) Pacemaker: Plan: Device interrogation ordered (5) Hypertension: Plan: BP on lower side, continue metoprolol and decreased losartan. Follow recs from cardiology DVT PROPHYLAXIS On Eliquis Admission and Anticipated Discharge Date Admission Date: September 27, 2023 Subjective Pt seen in follow up of hypoxia [facility] , prednisone, breathing treatment on admission, also started on abx for poss. pna Currently sitting up in bed in NAD, on RA. Denies any shortness of breath however. Denies chest pain, Has some cough and some sputum production. No fever, chills, abd. pain, n/v. Cardiology following - cont. w/ IV lasix, pt in afib, considering stopping amiodarone Pt's present at the bedside. Review of Systems Review of Systems: All systems reviewed & are unremarkable except as noted in Subjective Physical Exam Physical Exam: Constitutional: WD/WN, M in no acu te distress Eyes: PERRL, conjunctiva e normal, anicteri c sclerae ENMT: external ear and n ose normal, oropha rynx normal Respiratory: normal respiratory effort; no respir atory distress , + diminished lung s ounds Cardiovascular: Rate/Rhythm: regul ar rate and regula r rhythm Vessels: normal peripheral pulses Extremiti es: + edema (+1 ed yariel RLE, chronic) Gastrointestinal ( Abdomen): normal bowel sound s, soft, nontender Musculoskeletal: moves extremities Skin: no rashes, warm an d dry Neurologic: PERRL, EOMI, no fa ce palsy, no dysar thria, moves extre mities Psychiatric: A+Ox3, euthymic af fect, answers appr opriately Results & Data Results & Data Vital Signs (Past 12 Hours) Vital Signs Temp Pulse Pulse Resp BP BP Pulse Ox 09/30/23 08:06 36.5 C 69 19 148/84 H 95 09/30/23 07:30 86 16 96 09/30/23 03:23 36.4 C L 70 19 143/88 H 94 09/29/23 23:58 36.5 C 70 18 134/88 95 09/29/23 23:47 70 09/29/23 22:24 O2 Del Method 09/30/23 08:06 Room Air 09/30/23 07:30 Room Air 09/30/23 03:23 Room Air 09/29/23 23:58 Room Air 09/29/23 23:47 09/29/23 22:24 Room Air Laboratory Results 09/30/23 09/29/23 Range/Units 05:16 20:24 WBC 6.98 (4.8-10.8) K/ul RBC 4.55 L (4.70-6.10) M/uL Hgb 13.5 L (14.0-18.0) g/dl Hct 41.6 L (42.0-52.0) % MCV 91.4 (80.0-100.0) fL MCH 29.7 (25.0-34.0) pg MCHC 32.5 (32.0-36.0) g/dL RDW Std Deviation 49.9 H (36.4-46.3) fL RDW Coeff of Selena 15.0 H (11.5-14.5) % Plt Count 257 (130-400) K/uL MPV 10.8 (9.4-12.4) fL Sodium 141 (136-145) mmol/L Potassium 3.7 (3.5-5.1) mmol/L Chloride 108 H (98-107) mmol/L Carbon Dioxide 27 (21-32) mmol/L Anion Gap 6 (3-11) BUN 28 H (6-23) mg/dl Creatinine 1.09 (0.6-1.4) mg/dl Est Cr Clr Drug Dosing 52.1 ml/min Est GFR ( Amer) 70.9 ml/min Est GFR (Non-Af Amer) 61.1 ml/min BUN/Creatinine Ratio 25.7 H (10-20) Glucose 95 (70-99(Fasting)) mg/dl POC Glucose 114 H (70-99) mg/dl Calcium 8.5 L (8.6-10.3) mg/dl Medications Administered Current Inpatient Medications Acetaminophen (Acetaminophen 325 Mg Tab) 650 mg PO Q4H PRN PRN Reason: Pain or Fever Stop: 10/27/23 18:34 Albuterol (Albut/Ipratrop 3mg/0.5mg Neb 3 Ml Vial) 3 ml NEB QIDR [facility]; Protocol Stop: 10/27/23 18:59 Last Admin: 09/30/23 07:29 Dose: 3 ml Amiodarone HCl (Amiodarone 200 Mg Tab) [facility] Stop: 10/28/23 08:59 Last Admin: 09/30/23 09:32 Dose: 200 mg Amoxicillin/Clavulanate Potassium (Amoxicillin/Clavulanate 875 Mg Tab) 1 tab PO BIDM [facility]; Protocol Stop: 10/07/23 16:59 Apixaban (Apixaban 5 Mg Tablet) 5 mg PO BID [facility] Stop: 10/27/23 20:59 Last Admin: 09/30/23 09:32 Dose: 5 mg Cyanocobalamin (Cyanocobalamin (B-12) 500 Mcg Tablet) 1,000 mcg PO [facility] Stop: 10/28/23 08:59 Last Admin: 09/30/23 09:32 Dose: 1,000 mcg Finasteride (Finasteride 5 Mg Tab) [facility] [place] Stop: 10/28/23 08:59 Last Admin: 09/30/23 09:32 Dose: 5 mg Folic Acid (Folic Acid 1 Mg Tab) 1 mg PO Q2D@0900 [facility] Stop: 10/29/23 08:59 Last Admin: 09/29/23 10:02 Dose: 1 mg Furosemide (Furosemide 40 Mg/4 Ml Vial) 40 mg IV DAILY [facility] Stop: 10/30/23 08:59 Last Admin: 09/30/23 09:32 Dose: 40 mg Guaifenesin (Guaifenesin 600 Mg Tabcr) 600 mg PO Q12 [facility] Stop: 10/28/23 20:59 Last Admin: 09/30/23 09:33 Dose: 600 mg Losartan Potassium (Losartan Potassium 50 Mg Tab) [facility] [place] Stop: 10/29/23 08:59 Last Admin: 09/30/23 09:33 Dose: 50 mg Metoprolol Tartrate (Metoprolol Tartrate 25 Mg Tab) 12.5 mg PO BID [facility] Stop: 10/27/23 20:59 Last Admin: 09/30/23 09:34 Dose: 12.5 mg Pantoprazole Sodium (Pantoprazole 40 Mg Tab) 40 mg PO [facility] Stop: 10/28/23 08:59 Last Admin: 09/30/23 09:34 Dose: 40 mg Tamsulosin HCl (Tamsulosin Hcl 0.4 Mg Cap) 0.4 mg PO [facility] Stop: 10/27/23 20:59 Last Admin: 09/29/23 20:19 Dose: 0.4 mg Vitamin D (Cholecalciferol 1,000 Units 25 Mcg Tab) 25 mcg PO [facility] Stop: 10/28/23 20:59 Last Admin: 09/29/23 20:19 Dose: 25 mcg
--- NOTE | 2023-09-30 15:01 | Cardiology Progress Note ---
Date of Service September 30, 2023 Assessment & Plan (1) Acute hypoxic respiratory failure: (2) Paroxysmal atrial fibrillation: (3) Complete AV block: (4) Pacemaker: (5) Hypertension: Plan Assessment: 88 year old male with acute hypoxia following recent COURTNEY and DCCV the day prior. Plan: 1. Acute hypoxic Respiratory failure -Chest xray does suggest small bilateral pleural effusions and bibaslar opacities with or without superimposed aspiration/pneumonia -Consider CT chest for further evaluation. -WBC normal -BNP with mild elevation. 236 Denies any swelling of the extremities or abdomen. -Troponin with mild elevation, peaked and trending down 31.0. Recent DCCV and now hypoxic state. -Patient reports improvement in symptoms. does not appear hypervolemic on physical exam. Concern for aspiration -Continue to monitor resp. status. supplemental O2 as needed. -Continue IV antibiotics, nebulizers and steroids if indicated. -Echocardiogram demonstrates no significant change since COURTNEY 2 days prior. 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 (not new). -given his valvular disease, cautious with fluid management in the setting of an acute infection. -Will given one time dose of Furosemide 20mg IV today. Renal function and electrolytes are stable. 2. paroxysmal A-fib -Known history. S/P COURTNEY with DCCV on 09/26/23 -Remains sinus/paced on telemetry -Normal device function -Continue Amiodarone, Metoprolol tartrate and Eliquis as per current regimen. 3. Complete AV Block 4. Pacemaker -Implant date 2013 -Interrogation shows normal device function. 5. HTN -Slight improvement. Likely in the setting of an acute infectious process -Monitor closely. Losartan reduced to 50mg PO QD, shows improvement. Case has been discussed with Dr. Childs. Further recommendations regarding plan of care as per his assessment. I spent a total of 30 minutes on the date of service in preparation, delivery, documentation of the care provided to the patient excluding any time spent in the performance of separately billed services. AZAEL Bunrs [facility] 09/30/2023 Initial assessment as above Currently improving 88-year-old male who underwent synchronized electrical cardioversion for atrial fibrillation and attempts to maintain sinus rhythm. He presented with acute pulmonary edema as well as recurrence of atrial fibrillation with ventricular paced rhythm Echocardiogram suggests poor likelihood of maintaining sinus rhythm long-term Acute pulmonary edema symptoms complaints improved Plan: Discontinue amiodarone Given congestive heart failure will switch metoprolol to tartrate to metoprolol succinate 12.5 mg twice per day with room to increase Discontinue IV furosemide today likely add spironolactone and oral furosemide tomorrow Continue chronic anticoagulation with apixaban, losartan Admission and Anticipated Discharge Date Admission Date: September 27, 2023 Subjective Patient seen and examined, chart, medications, telemetry reviewed. Overall feels well today. No chest pains or shortness of breath Not aware of any irregular rhythms or tachypalpitations. Notes atrial fibrillation previously asymptomatic. Telemetry reveals persistent atrial fibrillation with ventricular paced rhythm, good rate control Review of Systems Review of Systems: All systems reviewed & are unremarkable except as noted in Subjective Physical Exam Constitutional: well developed and well nourished; no acute distress Neck: normal visual inspection and trachea midline Respiratory: normal respiratory effort and + respiratory distress Auscultation: + diminished lung sounds (bilateral bases); no crackles, no rales and no wheezes Cardiovascular: Rate/Rhythm: regular rate (Ventricular paced) and regular rhythm Heart Sounds: normal S1, normal S2 and + murmur (1/6 systolic ) Vessels: dorsalis pedis pulses present; no JVD Gastrointestinal (Abdomen): normal bowel sounds, soft, nontender, no hepatosplenomegaly Skin: no rashes, warm and dry Psychiatric: A+Ox3, euthymic affect Results & Data Vital Signs (Past 12 Hours) Vital Signs Temp Pulse Resp BP BP Pulse Ox O2 Del Method 09/30/23 12:34 36.6 C 71 18 118/71 96 Room Air 09/30/23 10:46 84 18 96 Room Air 09/30/23 08:06 36.5 C 69 19 148/84 H 95 Room Air 09/30/23 08:00 Room Air 09/30/23 08:00 09/30/23 07:30 86 16 96 Room Air 09/30/23 03:23 36.4 C L 70 19 143/88 H 94 Room Air O2 Del Method 09/30/23 12:34 09/30/23 10:46 09/30/23 08:06 09/30/23 08:00 09/30/23 08:00 Room Air 09/30/23 07:30 09/30/23 03:23 Laboratory Results Laboratory Results - last 24 hr 09/29/23 09/30/23 20:24 05:16 WBC 6.98 RBC 4.55 L Hgb 13.5 L Hct 41.6 L MCV 91.4 MCH 29.7 MCHC 32.5 RDW Std Deviation 49.9 H RDW Coeff of Selena 15.0 H Plt Count 257 MPV 10.8 Sodium 141 Potassium 3.7 Chloride 108 H Carbon Dioxide 27 Anion Gap 6 BUN 28 H Creatinine 1.09 Est Cr Clr Drug Dosing 52.1 Est GFR ( Amer) 70.9 Est GFR (Non-Af Amer) 61.1 BUN/Creatinine Ratio 25.7 H Glucose 95 POC Glucose 114 H Calcium 8.5 L
[2023-09-30] MEDS: AMOXICILLIN/CLAVULANATE 875 MG TAB PO SCH (16:20)
--- NOTE | 2023-09-30 18:57 | Electrocardiogram Report ---
Test Reason : Blood Pressure : / mmHG Vent. Rate : 070 BPM Atrial Rate : 312 BPM P-R Int : 000 ms QRS Dur : 178 ms QT Int : 476 ms P-R-T Axes : 000 -61 094 degrees QTc Int : 514 ms Ventricular-paced rhythm Abnormal ECG When compared with ECG of 27-SEP-2023 14:30, Vent. rate has decreased BY 7 BPM Confirmed by Jose Braswell ([id number]) on 09/30/2023 6:57:25 PM Referred By: REFERRED SELF Confirmed By:Jose Braswell
[2023-09-30] MEDS: METOPROLOL SUCC 25MG EXT REL TAB PO SCH (21:40)
[2023-10-01 06:01] LABS: Hematocrit (blood only) 41.8 % (42.0-52.0); Hemoglobin 13.8 g/dl (14.0-18.0); Mean Corpuscular Hemoglobin 29.6 pg (25.0-34.0); Mean Corpuscular Volume 89.7 fL (80.0-100.0); Mean Platelet Volume 10.5 fL (9.4-12.4); Platelet Count 274 K/uL (130-400); RDW Coefficient of Variation 14.7 % (11.5-14.5); RDW Standard Deviation 48.1 fL (36.4-46.3); Red Blood Count 4.66 M/uL (4.70-6.10); White Blood Count 6.75 K/ul (4.8-10.8)
[2023-10-01 06:04] LABS: BUN Creatinine Ratio 24.7 (10-20); Calcium 8.6 mg/dl (8.6-10.3); Creatinine Clr Calc Pharmacy 58.8 ml/min; Est GFR (African American) 81.6 ml/min; Est GFR (Non-African American) 70.4 ml/min; Magnesium 1.9 mg/dl (1.7-2.4); Phosphorus 2.6 mg/dl (2.5-4.9); Potassium 3.6 mmol/L (3.5-5.1)
[2023-10-01] MEDS: ALBUT/IPRATROP 3MG/0.5MG NEB 3 ML VIAL NEB PRN (07:28)
[2023-10-01] MEDS: POTASSIUM CHLORIDE CRTAB 20 MEQ TABCR PO STA (10:04)
[2023-10-01] MEDS: FUROSEMIDE 20 MG TAB PO SCH (11:39)
--- NOTE | 2023-10-01 12:04 | Discharge Summary ---
Date of Service October 01, 2023 Admission HPI Per Admitting Provider 88-year-old male with PMH paroxysmal atrial fibrillation anticoagulated on Eliquis, complete AV block s/p pacemaker, HTN, GERD, and other problems listed below who presents to the ED for evaluation of shortness of breath. History is obtained from the patient and review of outpatient PCP and cardiology records. According to the patient, he underwent COURTNEY guided cardioversion yesterday at [facility]. Records unavailable at this time. Patient carries a history of paroxysmal atrial fibrillation. On 08/31/2023, patient was seen by his primary teaching assistant and device interrogation showed persistent A-fib for the previous 3 months. Due to complaints of worsening dyspnea on exertion, plans were made to proceed with COURTNEY cardioversion to attempt to maintain sinus rhythm. Patient was also started on amiodarone at that time. Patient reports dyspnea on exertion was at recent baseline prior to procedure yesterday. Patient reports feeling well postprocedure. Today, he woke up feeling his usual state of health however as the day went on, he reports feeling progressively more short of breath. He denies chest pain and palpitations. No lightheadedness, dizziness, diaphoresis, syncopal events. Denies fevers and chills. Reports chronic nonproductive cough which is unchanged from baseline. No abdominal pain, nausea, vomiting, diarrhea. Denies urinary symptoms. In the ED, patient was found to be hypoxic on room air at 84%, initially requiring 5 L of oxygen via nasal cannula. Labs show mildly elevated proBNP. CXR shows bilateral lower lung opacities. Patient was given nebulizer treatment, Lasix 40 mg IV, prednisone 50 mg p.o. Admission Exam Per Admitting Provider Constitutional: WD/WN, vitals as above no acute distress Eyes: PERRL, conjunctivae normal, anicteric sclerae ENMT: external ear and nose normal, oropharynx normal Respiratory: normal respiratory effort; no respiratory distress Auscultation: + diminished lung sounds and + wheezes (Faint audible expiratory wheezing noted) Cardiovascular: Rate/Rhythm: regular rate and regular rhythm Vessels: normal peripheral pulses Extremities: + edema (+1 edema RLE, chronic) Gastrointestinal (Abdomen): normal bowel sounds, soft, nontender, no hepatosplenomegaly Musculoskeletal: no cyanosis or clubbing, extremities motor strength 5/5 Skin: no rashes, warm and dry Neurologic: PERRL, EOMI, accommodation nl, no face palsy, no dysarthria Psychiatric: A+Ox3, euthymic affect Principal Diagnosis Acute hypoxic resp. failure paroxysmal Afib Acute CHF Poss. aspiration pna Discharge Exam Constitutional: WD/WN, M in no acute distress Eyes: PERRL, conjunctivae normal, anicteric sclerae ENMT: external ear and nose normal, oropharynx normal Respiratory: normal respiratory effort; no respiratory distress , ctab Cardiovascular: Rate/Rhythm: regular rate and regular rhythm Vessels: normal peripheral pulses Extremities: + trace edema (edema RLE chronic) Gastrointestinal (Abdomen): normal bowel sounds, soft, nontender Musculoskeletal: moves extremities Skin: no rashes, warm and dry Neurologic: PERRL, EOMI, no face palsy, no dysarthria, moves extremities Psychiatric: A+Ox3, euthymic affect, answers appropriately Discharge Data Allergies Allergy/AdvReac Type Severity Reaction Status Date / Time lisinopril AdvReac Intermediate Cough Verified 09/27/23 16:07 codeine AdvReac Mild HEADACHES Verified 09/27/23 16:07 Consultations 09/27/23 15:55 ED Decision to Admit Stat 09/28/23 09:35 Consult Cardiology Routine Hospital Course (1) Acute hypoxic respiratory failure: Poss. aspiration pna vs. CHF, pAfib Patient presenting from home with reports of worsening shortness of breath. Per patient report, he underwent COURTNEY guided cardioversion at [facility]. Patient's primary teaching assistant-Dr. Vijay Kate, [facility]. [phone]. Office was contacted and records re: his cardioversion reviewed Cardiology - david also consulted and able to review his outside med. records Echocardiogram repeated - w/o sign. changes from previous one from [facility] In the ED, patient found to be hypoxic on room air at 84%, requiring 5 L of oxygen nasal cannula CXR shows bilateral lower lobe opacities Mildly elevated proBNP Doubt PE given anticoagulation with Eliquis and no missed doses ? CHF from IV fluid administration and/or aspiration from procedure 05/2022-EF 55% on pharmacologic nuclear stress test S/p Lasix 40 mg IV in the ED. Continued w/ IV lasix during his hosp. stay. Empirically started on Unasyn for aspiration, noted normal procalcitonin and no leukocytosis Received prednisone 50 mg in the ED, will hold on additional steroids at this time. Will continue with scheduled nebs. Wean O2 as able Decreased losartan dose due to lower BP w/ diuresis. Per cardiology - * Presents with ongoing dyspnea exertion question of aspiration pneumonia component versus CHF * small bilateral pleural effusions noted on chest x-ray * Cont. lasix as prescribed * Continue ampicillin/sulbactam for recommend transition to oral antibiotics soon as possible, is at present, feel symptoms likely suggest cardiac etiology. * Continue Eliquis, metoprolol , losartan * Continue amiodarone for now, however EKG and telemetry suggest recurrence of atrial fibrillation, and based on his echo findings I am not optimistic he will be able to maintain sinus rhythm. 09/30 Switched abx to PO augmentin. 10/01 Discussed in detail w/ cardiology - patient would like to continue his care with [facility] cardiology. Amiodarone was discontinued. Losartan dose decreased to 50 mg daily. Metoprolol tartrate was switched to metoprolol succinate. Patient was started on Lasix 20 mg 5 times a week, and spironolactone 12.5 mg daily. (2) Paroxysmal atrial fibrillation: Per patient, s/p COURTNEY guided cardioversion yesterday at [facility] - records reviwed Per outpatient cardiology note on 08/31/2023, patient was started on amiodarone. Per patient, on amiodarone 200mg BID dosing, to start amiodarone 200mg daily today -- initially continued on admission, now stopped. Continue metoprolol -> switched to succinate Continue Eliquis Further med changes as per cardiology, see above (3) Complete AV block: (4) Pacemaker: Device interrogation ordered (5) Hypertension: BP at goal, med changes as above, per cardiology DVT PROPHYLAXIS On Eliquis Total Time Total Time Spent Total Time Spent (In Minutes): 40 Discharge Plan Discharge Items Patient Disposition: Home - Self-Care Reason For Visit: HYPOXIA Discharge Diagnosis: Acute hypoxic resp. failure paroxysmal Afib Acute CHF Poss. aspiration pna Activity: Per Instructions section Non-emergency contact: Primary Care Provider and Quality Lab Technician Call non-emergency contact if: you have any medication questions and your symptoms worsen Follow-up/Referrals: Vineet Paris MD [Primary Care Provider] - Diet: Heart Healthy and Low Sodium (2gm) Addtl Attending Provider Instructions: Follow up with your primary care doctor and primary teaching assistant. You will be contacted about your appointment with [facility] cardiology group. Amiodarone was discontinued. Metoprolol tartrate was switched to metoprolol succinate. Losartan dose was decreased to 50 mg daily. Finish antibiotic as prescribed. Start taking furosemide (lasix) 5 times a week and spironolactone 12.5 mg daily. Addtl Field Sales Manager Provider Instructions: Call your Primary Care doctor if any of the following symptoms or problems start or get worse: * Shortness of breath or difficulty breathing * Wake up at night short of breath * Chest pain * Cough * Swelling of your hands, feet, or legs * More fatigued or tired with your normal activity * Palpitations - sudden fast heart beats WEIGHT * Weigh yourself every morning after using the bathroom. * Use the same scale. * Wear the same amount of clothing. * Write your weight down on a chart. * Call your Primary Care doctor if you gain more than 2-3 pounds in 1-2 days. MEDICATIONS * Use this discharge instruction sheet for medication instructions. * Take your medications at the time your doctor ordered. * Do not skip a dose of your medicines. * If you miss a dose of medicine, take it as soon as possible, but DO NOT DOUBLE A DOSE. * Read your medicine information when you get home. * Know all of the side effects of your medicine. If in doubt, ask your pharmacist * Call your Primary Care doctor's office if you have any side effects. * Be sure all of your doctors know what medicine and herbs you take (including cold, flu, and herbal medicine). Take the following with you to your follow-up doctor appointments: * Weight Chart * Medication List * List of questions Do not drink excessive alcohol, beer or wine. Pending Studies at Discharge: No Stand-Alone Forms: My [employer], Smoking Cessation Medications and DC Order Prescriptions: New losartan 50 mg Tablet 50 mg PO QAM Qty: 30 0RF metoprolol succinate 25 mg Tablet Extended Release 24 Hr 12.5 mg PO BID Qty: 30 0RF spironolactone 25 mg Tablet 12.5 mg PO DAILY Qty: 30 0RF furosemide 20 mg Tablet 20 mg PO QAM Qty: 30 0RF guaifenesin [Mucinex] 600 mg Tablet Extended Release 12hr 600 mg PO Q12 Qty: 10 0RF amoxicillin-pot clavulanate 875-125 mg Tablet 1 tab PO BIDM Qty: 4 0RF Continued tamsulosin 0.4 mg Capsule 0.4 mg PO HS pantoprazole 40 mg Tablet,Delayed Release (Dr/Ec) 40 mg PO QAM folic acid 1 mg Tablet 1 mg PO Q2D finasteride 5 mg Tablet 5 mg PO QAM cholecalciferol (vitamin D3) [Vitamin D3] 25 mcg (1,000 unit) Capsule 25 mcg PO HS cyanocobalamin (vitamin B-12) 1,000 mcg Capsule 1,000 mcg PO QAM acetaminophen 500 mg Tablet 1,000 mg PO Q6H PRN (Reason: Pain) Eliquis 5 mg Tablet 5 mg PO BID Discontinued losartan 100 mg Tablet 100 mg PO QAM metoprolol tartrate 25 mg Tablet 12.5 mg PO BID amiodarone 200 mg Tablet See Rx Instructions .ROUTE .COMPLEX Rx Instructions: PER PT'S SPOUSE "TAKING 400 MG DAILY X 14 DAYS, THEN DECREASE DOSE TO 200 MG DAILY". Discharge Orders: Discharge Order- CHF (Routine); Ordered 10/01/23 Ordered By: Reji Mitchell Admission Data Admit Date/Time: 09/27/23 16:28 Attending Provider: Reji Mitchell Admit Provider: Moi Moreno Primary Care Provider: Vineet Paris Other Providers: Moi Moreno; Eric Childs
--- NOTE | 2023-10-01 16:17 | Cardiology Progress Note ---
Date of Service October 01, 2023 Assessment & Plan (1) Acute hypoxic respiratory failure: (2) Paroxysmal atrial fibrillation: (3) Complete AV block: (4) Pacemaker: (5) Hypertension: Plan Assessment: 88 year old male with acute hypoxia following recent COURTNEY and DCCV the day prior. Plan: 1. Acute hypoxic Respiratory failure -Chest xray does suggest small bilateral pleural effusions and bibaslar opacities with or without superimposed aspiration/pneumonia -Consider CT chest for further evaluation. -WBC normal -BNP with mild elevation. 236 Denies any swelling of the extremities or abdomen. -Troponin with mild elevation, peaked and trending down 31.0. Recent DCCV and now hypoxic state. -Patient reports improvement in symptoms. does not appear hypervolemic on physical exam. Concern for aspiration -Continue to monitor resp. status. supplemental O2 as needed. -Continue IV antibiotics, nebulizers and steroids if indicated. -Echocardiogram demonstrates no significant change since COURTNEY 2 days prior. 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 (not new). -given his valvular disease, cautious with fluid management in the setting of an acute infection. -Will given one time dose of Furosemide 20mg IV today. Renal function and electrolytes are stable. 2. paroxysmal A-fib -Known history. S/P COURTNEY with DCCV on 09/26/23 -Remains sinus/paced on telemetry -Normal device function -Continue Amiodarone, Metoprolol tartrate and Eliquis as per current regimen. 3. Complete AV Block 4. Pacemaker -Implant date 2013 -Interrogation shows normal device function. 5. HTN -Slight improvement. Likely in the setting of an acute infectious process -Monitor closely. Losartan reduced to 50mg PO QD, shows improvement. 09/30/2023 Initial assessment as above Currently improving 88-year-old male who underwent synchronized electrical cardioversion for atrial fibrillation and attempts to maintain sinus rhythm. He presented with acute pulmonary edema as well as recurrence of atrial fibrillation with ventricular paced rhythm Echocardiogram suggests poor likelihood of maintaining sinus rhythm long-term Acute pulmonary edema symptoms complaints improved Plan: Discontinue amiodarone Given congestive heart failure will switch metoprolol to tartrate to metoprolol succinate 12.5 mg twice per day with room to increase Discontinue IV furosemide today likely add spironolactone and oral furosemide tomorrow Continue chronic anticoagulation with apixaban, losartan 10/01/2023 Assessment and plan as outlined above. Management of atrial fibrillation discussed in detail with patient and . Given left atrial enlargement and degree of mitral insufficiency low likelihood of maintaining sinus rhythm. Patient not significantly symptomatic Will continue metoprolol succinate 12.5 mg twice per day Add diuretic with furosemide 20 mg 5 days/week, spironolactone 12.5 mg daily Lab work BMP 1 week Cardiology follow-up 2 weeks. Patient wishes to establish with [facility] cardiology. Recommended [facility] Jenae given convenience, resident of [place] Admission and Anticipated Discharge Date Admission Date: September 27, 2023 Subjective Patient seen and examined, chart, medications, telemetry reviewed. Once again feels improved. Minimal breathlessness. No chest pains or discomfort Telemetry reveals ventricular paced rhythm with underlying atrial fibrillation, rate 70 bpm Review of Systems Review of Systems: All systems reviewed & are unremarkable except as noted in Subjective Physical Exam Constitutional: well developed and well nourished; no acute distress Neck: normal visual inspection and trachea midline Respiratory: normal respiratory effort and + respiratory distress Auscultation: + diminished lung sounds (bilateral bases); no crackles, no rales and no wheezes Cardiovascular: Rate/Rhythm: regular rate (Ventricular paced) and regular rhythm Heart Sounds: normal S1, normal S2 and + murmur (1/6 systolic ) Vessels: dorsalis pedis pulses present; no JVD Gastrointestinal (Abdomen): normal bowel sounds, soft, nontender, no hepatosplenomegaly Skin: no rashes, warm and dry Psychiatric: A+Ox3, euthymic affect Results & Data Vital Signs (Past 12 Hours) Vital Signs Temp Pulse Resp BP BP Pulse Ox O2 Del Method 10/01/23 12:37 36.4 C L 70 18 124/81 147/92 H 94 10/01/23 08:00 Room Air 10/01/23 08:00 10/01/23 07:51 36.4 C L 70 18 124/81 94 Room Air 10/01/23 07:29 74 18 94 Room Air O2 Del Method 10/01/23 12:37 10/01/23 08:00 10/01/23 08:00 Room Air 10/01/23 07:51 10/01/23 07:29 Laboratory Results Laboratory Results - last 24 hr 10/01/23 05:18 WBC 6.75 RBC 4.66 L Hgb 13.8 L Hct 41.8 L MCV 89.7 MCH 29.6 MCHC 33.0 RDW Std Deviation 48.1 H RDW Coeff of Selena 14.7 H Plt Count 274 MPV 10.5 Sodium 139 Potassium 3.6 Chloride 106 Carbon Dioxide 28 Anion Gap 5 BUN 24 H Creatinine 0.97 Est Cr Clr Drug Dosing 58.8 Est GFR ( Amer) 81.6 Est GFR (Non-Af Amer) 70.4 BUN/Creatinine Ratio 24.7 H Glucose 105 H Calcium 8.6 Phosphorus 2.6 Magnesium 1.9
[2023-10-02] MEDS ORDERED: SPIRONOLACTONE 12.5 MG TAB PO SCH (09:00)
== END 2023-10-01 13:36 | disposition home or self-care (01) | DRG 177 ==
LOC: ED 14:16 → EDINP 16:28 → SUATTDRO 16:28 → 1E 09-28 04:45 → 4W 09-28 19:12